=== PATIENT | female | born 1940 | race Caucasian/White ===

== ENCOUNTER → 2017-04-28 | Outpatient (REF) | payer MEDICARE ==
[2017-04-28 16:47] LABS: APPEARANCE, URINE CLEAR (CLEAR); BACTERIA, URINE AUTO NEGATIVE (NEGATIVE); BILIRUBIN, URINE AUTO NEGATIVE (NEGATIVE); BLOOD, URINE BLOOD NEGATIVE (NEGATIVE); COLOR, URINE COLORLESS (YELLOW); GLUCOSE, URINE (UA) AUTO 1+ mg/dL (NEGATIVE); KETONE, URINE AUTO NEGATIVE (NEGATIVE); LEUKOCYTE ESTERASE, URINE AUTO NEGATIVE (NEGATIVE); NITRITE, URINE AUTO NEGATIVE (NEGATIVE); PROTEIN, URINE AUTO NEGATIVE (NEGATIVE); RBC, URINE AUTO 0 /HPF (0-3); SPECIFIC GRAVITY URINE AUTO 1.004 (1.002-1.035); SQUAMOUS EPITHELIAL CELL UR AU 0 /HPF (0-6); UROBILINOGEN, URINE AUTO 0.2 mg/dL (0.0-2.0); WBC, URINE AUTO 0 /HPF (0-3)
== END ==
LOC: M LAB REF 15:44
DX: N81.6 Rectocele (principal); N32.81 Overactive bladder
CPT/HCPCS: 81001

== ENCOUNTER → 2018-02-07 | Outpatient (REF) | payer MEDICARE ==
[2018-02-07 13:25] LABS: CHOLESTEROL LEVEL 163 MG/DL (<200); FREE T4 1.17 NG/DL (0.76-1.46); HDL CHOLESTEROL 43 MG/DL (>40); LDL CHOLESTEROL 83 MG/DL (<100); NON-HDL-C 120 MG/DL; THYROID STIMULATING HORMONE 0.077 uIU/ML (0.358-3.740); TRIGLYCERIDES LEVEL 187 MG/DL (<150); URIC ACID 3.1 MG/DL (2.6-6.0)
== END ==
LOC: M SFHCPLAZ 12:57
DX: E05.90 Thyrotoxicosis, unspecified without thyrotoxic crisis or storm (principal); E78.5 Hyperlipidemia, unspecified; M10.9 Gout, unspecified
CPT/HCPCS: 84443

== ENCOUNTER → 2018-02-07 | Outpatient (REF) | payer MEDICARE ==
[2018-02-07 13:37] LABS: TOTAL PROTEIN,RANDOM URINE < 5.0 MG/DL (0.0-12.0)
== END ==
LOC: M LAB REF 12:55
DX: N18.3 Chronic kidney disease, stage 3 (moderate) (principal)

== ENCOUNTER → 2018-02-15 | Outpatient (CLI) | payer MEDICARE ==
[~2018-02-15] MED LIST: HEPARIN 1,000 UNITS/ML 10ML VIAL (FOR RADIOLOGY& DIALYSIS ONLY) As Ordered; ISOVUE-300 61% 50ML VIAL (Q9967) As Ordered; LIDOCAINE 2% MDV 20 ML VIAL As Ordered; MIDAZOLAM INJ 2 MG/2 ML VIAL (J2250) As Ordered; fentaNYL 100 MCG/2 ML INJECTION (J3010) As Ordered
== END | disposition home or self-care (01) ==
LOC: M IRPRO 06:37
DX: I73.9 Peripheral vascular disease, unspecified (principal)
CPT/HCPCS: 36246

== ENCOUNTER → 2018-02-16 | Outpatient (CLI) | payer MEDICARE | LOC: M RAD 07:17 | DX: N18.3 Chronic kidney disease, stage 3 (moderate) (principal); I12.9 Hypertensive chronic kidney disease with stage 1 through stage 4 chronic kidney disease, or unspecified chronic kidney disease; N13.30 Unspecified hydronephrosis; N28.1 Cyst of kidney, acquired | CPT/HCPCS: 76775 ==

== ENCOUNTER → 2018-05-19 | Outpatient (REF) | payer MEDICARE ==
[~2018-05-19] MED LIST changes: +ALLO100T PO; +ALLO300T2 PO; +AMLO2.5T PO; +AMLO2.5T3 PO; +APAP325T4 PO; +ASPI1TAB PO; +ASPI81TA7 PO; +ATEN50TA2 PO; +AVAP300T PO; +FISH100035 PO; +FISH7.5C PO; -HEPARIN 1,000 UNITS/ML 10ML VIAL (FOR RADIOLOGY& DIALYSIS ONLY) As Ordered; +HYDR-3911 PO; +IMIT50TA PO; +IRBE300T10 PO; -ISOVUE-300 61% 50ML VIAL (Q9967) As Ordered; -LIDOCAINE 2% MDV 20 ML VIAL As Ordered; +MELA5CAP3 PO; +MELA5TAB20 PO; +METF-839 PO; +METF500T PO; -MIDAZOLAM INJ 2 MG/2 ML VIAL (J2250) As Ordered; +NATU400T PO; +NIAC500T42 PO; +OMEP40CA2 PO; +PRAV80TA2 PO; +PROP50TA3 PO; +PROPYLTHIOURACIL PO; +SUPE600T4 PO; +SUPETAB PO; +TYLE325T5 PO; +VITAE20CA PO; -fentaNYL 100 MCG/2 ML INJECTION (J3010) As Ordered
[2018-05-19 12:34] LABS: HEMOGLOBIN A1c 5.8 %
[2018-05-19 12:58] LABS: FREE T4 1.4 NG/DL (0.76-1.46); THYROID STIMULATING HORMONE 0.032 uIU/ML (0.358-3.740)
== END ==
LOC: M SFHCPLAZ 10:35
PROVIDERS: ATTEND Family Medicine
DX: E05.90 Thyrotoxicosis, unspecified without thyrotoxic crisis or storm (principal); E11.22 Type 2 diabetes mellitus with diabetic chronic kidney disease

== ENCOUNTER 2018-06-28 11:30 | Inpatient (IN) | payer MEDICARE ==
[~2018-06-28] VITALS: Ht 172.7 cm; Wt 86.2 kg
[2018-06-28] MEDS: IRBESARTAN 150 MG TAB PO SCH (09:00)
[2018-06-28] MEDS: LACTOBACILLUS ACIDOPHILUS CAP (BACID) PO SCH (09:00)
[~2018-06-28 11:30] MED LIST changes: +ATOR40TA75 PO; +LORA-243 PO; +LR 1,000 ML IV ONE; +MAG-400T7 PO; +METF-723 PO; +PROBCAP4 PO; +ZYLO300T6 PO
[2018-06-28] MEDS ORDERED: MIDAZOLAM INJ 2 MG/2 ML VIAL (J2250) As Ordered ONE (15:38)
[2018-06-28] MEDS ORDERED: fentaNYL 100 MCG/2 ML INJECTION (J3010) As Ordered ONE ×2 (15:39→17:42)
[2018-06-28] MEDS ORDERED: PROPOFOL 500 MG/50 ML VIAL As Ordered ONE (15:42)
[2018-06-28] MEDS ORDERED: LIDOCAINE 2% INJ 100 MG/5 ML SDV (FOR ANES.) As Ordered ONE (15:44)
[2018-06-28] MEDS ORDERED: THROMBIN SOLN 20,000 UNITS KIT As Ordered ONE (15:46)
[2018-06-28] MEDS ORDERED: CONRAY-60 60% 50ML VIAL (Q9961) As Ordered ONE (15:46)
[2018-06-28] MEDS ORDERED: LIDOCAINE 1% SDV INJ 30 ML VIAL As Ordered ONE (15:46)
[2018-06-28] MEDS ORDERED: HEPARIN SOD (PORCINE) 5000 UNITS/ML VIAL As Ordered ONE ×2 (15:46→18:31)
[2018-06-28] MEDS ORDERED: BUPIVACAINE HCL 0.5% 30 ML VIAL As Ordered ONE (15:47)
--- NOTE | 2018-06-28 16:02 | HPEPDOC ---
General Date of Admission Jun 28, 2018 at 12:27 Attending Physician: Yoav Rivas MD Chief Complaint The patient is a 78-year-old female admitted with a reason for visit of Left Lower Extremity Claudication. Source: Patient, Family Exam Limitations: No limitations Timing/Duration: Constant, Getting worse Severity: Moderate History of Present Illness Patient is a 78-year-old female with left lower extremity claudication who underwent a left lower extremity angiogram which showed complete superficial femoral arterial occlusion at the takeoff from the common femoral artery with reconstitution of the popliteal artery distally. Home Medications Scheduled (Super Calcium 600 + D3 600-400 mg-Unit) 1 Tab Tab, 1 TAB PO DAILY, (Reported) Aspirin (Aspirin 81) 81 Mg Tab, 81 MG PO DAILY, (Reported) Atenolol (Atenolol) 50 Mg Tab, 50 MG PO BID, (Reported) Atorvastatin Calcium (Atorvastatin Calcium) 40 Mg Tab, 40 MG PO DAILY, (Reported) Hydralazine HCl (Hydralazine HCl) 50 Mg Tab, 50 MG PO BID, (Reported) Irbesartan (Irbesartan) 300 Mg Tab, 300 MG PO DAILY, (Reported) Lactobacillus Acidophilus (Probiotic) 1 Cap Cap, 1 CAP PO DAILY, (Reported) Loratadine (Loratadine) 10 Mg Tab, 10 MG PO DAILY, (Reported) Magnesium Oxide (Magnesium-Oxide) 241.3 Mg Tab, 400 MG PO DAILY for constipation, (Reported) Metformin Hydrochloride (Metformin Hydrochloride ER) 500 Mg Tab, 500 MG PO BID, (Reported) Limon 3 Polyunsat Fatty Acids (Fish Oil 1000 mg) 1 Cap Cap, 1 CAP PO DAILY, (Reported) Omeprazole (Omeprazole) 40 Mg Cap, 40 MG PO DAILY, (Reported) Propylthiouracil (Propylthiouracil) 50 Mg Tab, 50 MG PO BID, (Reported) Scheduled PRN (Melatonin) 5 Mg Chw, 5 MG PO for INSOMNIA, (Reported) Acetaminophen (Apap) 325 Mg Tab, 650 MG PO PRN PRN for PAIN OR FEVER, (Reported) Sumatriptan Succinate (Imitrex) 50 Mg Tab, 50 MG PO for MIGRAINE, (Reported) Miscellaneous Medications Allopurinol (Zyloprim) 300 Mg Tab, 150 MG PO, (Reported) Allergies Coded Allergies: Penicillins (Verified Allergy, Unknown, TRIMOX - ITCHING AND SWELLING, 06/28/18) Penicillins Cross Reactors (Verified Allergy, Unknown, TRIMOX - ITCHING AND SWELLING, 06/28/18) Furosemide (Verified Adverse Reaction, Unknown, DRAINS ALL POTASSIUM, 06/28/18) Past Medical History Medical History Hypothyroidism Peripheral arterial disease Diabetes mellitus Hypertension Hyperlipidemia Hypercholesterolemia Status post pacer placement Gout Surgical History Knee Surgery - Left Knee Replacement-2001 Thyroid Surgery - 2003 Hysterectomy - 1982 Pacemaker Implant - 2012 Tubal Ligation - 1972 Varicose Vein Stripping - Right Leg- Angiogram - LEFT LEG 02/15/18 Review of Systems Constitutional: Denies: Chills, Fever, Malaise, Night Sweats, Weakness, Fatigue, Weight Loss, Lethargy Eyes: Denies: Pain, Vision change, Conjunctivae inflammation, Eyelid inflammation, Redness ENT: Denies: Head Aches, Ear Pain, Dysphagia, Sinus Congestion, Post Nasal Drip, Sore Throat, Epistaxis Skin: Denies: Rash, Lesions, Jaundice, Bruising, Itching, Dry, Breakdown, Nail Changes Pulmonary: Denies: Dyspnea, Cough, Pleuritic Chest Pain Cardiovascular: Denies: Chest Pain, Palpitations, Orthopnea, Paroxysmal Noc. Dyspnea, Edema, Lt Headedness Gastrointestinal: Denies: Nausea, Vomiting, Abdominal Pain, Diarrhea, Constipation, Melena, Hematochezia Genitourinary: Denies: Dysuria, Frequency, Incontinence, Hematuria, Retention Hematologic: Denies: Bruising, Bleeding Excessively, Petecchia, Purpura, Enlarged Lymph Nodes Endocrine: Denies: Polydipsia, Polyphagia, Polyuria, Heat Intolerance, Cold Intolerance Musculoskeletal: Denies: Neck Pain, Back Pain, Shoulder Pain, Arm Pain, Hand Pain, Leg Pain, Foot Pain, Joint Pain, Muscle Pain, Spasms Neurological: Denies: Weakness, Numbness, Incoordination, Change in speech, Confusion, Seizures Psych: Reports: Mood Normal; Denies: Anxiety, Depression, Memory Issues, Thoughts of Self Harm, Anger, Thoughts of Harming Other Physical Examination General Exam: Positive: Alert, Cooperative, No Acute Distress Eye Exam: Positive: PERRLA, Conjunctiva & lids normal, EOMI ENT Exam: Positive: Atraumatic, Mucous membr. moist/pink, Pharynx Normal, Tongue Midline, Nares Patent, Ext Auditory Canal Nml, Pinna Normal Neck Exam: Positive: Supple, +2 carotid pulse wo bruit; Negative: JVD, thyromegaly, Lymphadenopathy Chest Exam: Positive: Clear to auscultation, Normal air movement; Negative: Rales, Rhonchi, Wheezing, Diminished Heart Exam: Positive: Rate Normal, Regular Rhythm; Negative: Irregular Rhythm, Gallops, Murmurs, Rubs Telemetry: Positive: No significant arrhythmia, Sinus Abdomen Exam: Positive: Normal bowel sounds, Soft; Negative: BS Hyperactive, BS Hypoactive, Tenderness, Hepatospenomegaly, Mass, Hernia Extremity Exam: Negative: Clubbing, Cyanosis, Edema, Normal pulses, Tenderness, Swelling Skin Exam: Positive: Nl turgor and temperature; Negative: Rash, Breakdown, Lesion, Pruritus Neuro Exam: Positive: Normal Gait, Normal Speech, Strength at 5/5 X4 ext, Normal Tone, Sensation Intact, Cranial Nerves 3-12 NL, Reflexes 2+ Psych Exam: Positive: Mental status NL, Mood NL, Memory Intact, Oriented x 3 Vital Signs Vital Signs Date Time Temp Pulse Resp B/P (MAP) Pulse Ox O2 Delivery O2 Flow Rate FiO2 06/28/18 13:11 198/84 (122) 06/28/18 13:01 97.6 88 18 96 Laboratory Data Labs 24H Laboratory Tests 2 06/28/18 14:06: Bedside Glucose (Misc Panel) 114H Assessment/Plan Assessment Patient is a 78-year-old female with superficial femoral artery occlusion the left lower extremity with debilitating life limiting claudication. Plan Patient will undergo a left femoral to popliteal artery bypass graft with PTFE graft. Yoav Rivas MD Jun 28, 2018 16:02
[2018-06-28] MEDS ORDERED: PROPOFOL 200 MG/20 ML VIAL As Ordered ONE ×3 (17:31→18:41)
[2018-06-28] MEDS ORDERED: PROTAMINE SULF INJ 50 MG/5 ML VIAL (J2720) As Ordered ONE (19:10)
--- NOTE | 2018-06-28 19:37 | ROOPDOC ---
Yoav Rivas MD Jun 28, 2018 19:37
[2018-06-28] MEDS ORDERED: SUMAtriptan SUCCINATE 25 MG TAB PO PRN (19:45)
[2018-06-28] MEDS ORDERED: MOM 30ML SUSPENSION UDC PO PRN (19:45)
[2018-06-28] MEDS ORDERED: BISACODYL 10 MG SUPP PR PRN (19:45)
[2018-06-28] MEDS ORDERED: NORCO, ANEXSIA 5/325MG TABLET (HYDROcodone/ACETAMINOPHEN) PO PRN ×2 (19:45→20:00)
[2018-06-28] MEDS ORDERED: ONDANSETRON 4MG/2ML VIAL (J2405) IV PRN ×2 (19:45→20:00)
[2018-06-28] MEDS ORDERED: MORPHINE 4 MG/ML 1ML VIAL/SYRINGE (J2270) IV PRN (19:45)
[2018-06-28] MEDS ORDERED: LR 1,000 ML IV SCH (20:00)
[2018-06-28] MEDS ORDERED: fentaNYL 100 MCG/2 ML INJECTION (J3010) IV PRN (20:00)
[2018-06-28 20:30] VITALS: BP 158/67
[2018-06-28] MEDS: MAGNESIUM OXIDE 400 MG TAB (MAG-OX) PO SCH (20:57)
[2018-06-28] MEDS: SENOKOT S TAB PO SCH (20:57)
[2018-06-28] MEDS: LORATADINE 10 MG TAB PO SCH (20:57)
[2018-06-28] MEDS: DOCUSATE SODIUM 100 MG CAP PO SCH (20:57)
[2018-06-28] MEDS: OMEPRAZOLE 20 MG CAP PO SCH (20:58)
[2018-06-28] MEDS: ATORVASTATIN 20 MG TAB PO SCH (20:58)
[2018-06-28] MEDS: OMEGA-3 1000MG CAPSULE PO SCH (20:58)
[2018-06-28] MEDS: ASPIRIN 81 MG ENTERIC TAB PO SCH (20:58)
[2018-06-28 21:00] VITALS: BP 151/67
[2018-06-28] MEDS: ATENOLOL 50 MG TAB PO SCH (21:00)
[2018-06-28] MEDS: **hydrALAZINE** 50 MG TAB PO SCH (21:00)
[2018-06-28 21:30] VITALS: BP 132/63
[2018-06-28 22:30] VITALS: BP 124/55
[2018-06-28] MEDS: ACETAMINOPHEN 325 MG TAB PO PRN (22:44)
[2018-06-28 23:30] VITALS: BP 131/68
[2018-06-29] VITALS (8 sets, daily range): BP systolic 114–139; BP diastolic 56–65
[2018-06-29] MEDS: PROPYLTHIOURACIL 50 MG TAB PO SCH ×3 (00:28→21:04)
[2018-06-29] MEDS: metFORMIN XR 500MG TAB *GLUCOPHAGE XR PO SCH ×3 (00:29→21:04)
[2018-06-29] MEDS: ACETAMINOPHEN 325 MG TAB PO PRN (03:26)
[2018-06-29 06:12] LABS: HEMATOCRIT 27.9 % (36.0-47.0); HEMOGLOBIN 8.9 g/dl (12.0-15.5); MEAN CORPUSCULAR HEMOGLOBIN 30.5 pg (27.0-33.0); MEAN CORPUSCULAR HGB CONC 31.9 g/dl (32.0-36.5); MEAN CORPUSCULAR VOLUME 95.5 fl (80.0-96.0); PLATELET COUNT, AUTOMATED 199 10^3/uL (150-450); RED BLOOD COUNT 2.92 10^6/uL (4.00-5.40); WHITE BLOOD COUNT 10.5 10^3/uL (4.0-10.0)
[2018-06-29 06:36] LABS: CALCIUM LEVEL 8.3 MG/DL (8.8-10.2); CREATININE FOR GFR 1.3 MG/DL (0.55-1.30); GLOMERULAR FILTRATION RATE 42.4 (>39); POTASSIUM SERUM 4.6 MEQ/L (3.5-5.1)
[2018-06-29] MEDS: OMEGA-3 1000MG CAPSULE PO SCH (08:41)
[2018-06-29] MEDS: ASPIRIN 81 MG ENTERIC TAB PO SCH (08:41)
[2018-06-29] MEDS: SENOKOT S TAB PO SCH ×2 (08:41→21:03)
[2018-06-29] MEDS: MAGNESIUM OXIDE 400 MG TAB (MAG-OX) PO SCH (08:41)
[2018-06-29] MEDS: LACTOBACILLUS ACIDOPHILUS CAP (BACID) PO SCH (08:41)
[2018-06-29] MEDS: LORATADINE 10 MG TAB PO SCH (08:41)
[2018-06-29] MEDS: ATORVASTATIN 20 MG TAB PO SCH (08:41)
[2018-06-29] MEDS: **hydrALAZINE** 50 MG TAB PO SCH ×3 (08:43→21:05)
[2018-06-29] MEDS: DOCUSATE SODIUM 100 MG CAP PO SCH ×2 (08:43→21:05)
[2018-06-29] MEDS: IRBESARTAN 150 MG TAB PO SCH ×2 (08:44→09:00)
[2018-06-29] MEDS: ATENOLOL 50 MG TAB PO SCH ×3 (08:44→21:04)
[2018-06-29] MEDS: ALLOPURINOL 300 MG TAB PO SCH (08:44)
[2018-06-29] MEDS: OMEPRAZOLE 20 MG CAP PO SCH (08:45)
[2018-06-29] MEDS ORDERED: GLUCOSE 4 GM CHEW TABLET PO PRN (13:30)
[2018-06-29] MEDS ORDERED: DEXTROSE 50% 50 ML SYRINGE IV PRN (13:30)
[2018-06-29] MEDS ORDERED: GLUCAGON FOR INJ 1 MG VIAL (J1610) SC PRN (13:30)
--- NOTE | 2018-06-29 15:51 | CR ---
DATE OF CONSULTATION: 06/29/2018 PRIMARY CARE PROVIDER: Dr. Dipti Goldberg REFERRING PHYSICIAN: Dr. Yoav Rivas REASON FOR CONSULTATION: Medical management of chronic illness such as diabetes, hypertension, hypercholesterolemia. CHIEF COMPLAINT: Bilateral leg pain. HISTORY OF PRESENT ILLNESS: This is a 78-year-old female, past medical history significant for hypertension, dyslipidemia, migraine headaches, hyperthyroidism, reflux, gout, diabetes, denies any prior history of smoking had been having on and off bilateral lower extremity pain which is worsened with shopping and walking around. She states that she has had these symptoms for about a year, but they have been unbearable for the last few months. She presented to her primary care physician who referred her to vascular surgery. She was found to have peripheral vascular disease and underwent a left femoral-popliteal bypass grafting on 06/28/2018. The patient states that she still continues to have slight pain and that her blood pressure usually runs slow at home for which she usually holds her blood pressure medications. Glucose level has been running normal at home according to the patient. PAST MEDICAL HISTORY: Macrocytic anemia. Bladder prolapse, status post pessary. Hypertension. Diabetes. Hyperlipidemia. Third degree heart block 02/2013 with pacemaker. Conductive hearing loss. Wears hearing aids. Magnesium deficiency. Irritable bowel syndrome. Gastroesophageal reflux disease. Duodenal ulcer. Multinodular goiter, status post partial thyroidectomy. Osteoarthritis of the cervical spine. Osteopenia. Atrial tachycardia. Gout. BPPV. Hyperthyroidism. History of migraines since age 19. ALLERGIES: Itching and facial swelling with TRIMOX. LASIX, low potassium levels. PAST SURGICAL HISTORY: Hysterectomy. Left knee replacement. Partial thyroidectomy. Pacemaker. Colonoscopy with tubular adenoma. Esophagogastroduodenoscopy (EGD), duodenal ulcer and chronic gastritis per Dr. Blake. Angiogram, Dr. Rivas 02/2018. FAMILY HISTORY: Father lymphoma, at age 49. Mother hypertension. Siblings, brother of hemochromatosis, history of type 2 diabetes, knee osteoarthritis. Brother has hypertension. Daughter with fibromyalgia, son with hypertension. Denies family history of breast or colon cancer. SOCIAL HISTORY: Never smoked cigarettes. No alcohol use or recreational drug use. Using caffeine, coffee and tea occasionally. Patient finished high school, retired [employer] employee. Divorces. Has four childbirths. REVIEW OF SYSTEMS: Denies chest pain, palpitations. Pain in the lower extremities improved since the gastric bypass. Patient has occasional changes in vision. All other systems otherwise negative. PHYSICAL EXAMINATION: Temperature 97.5, pulse 64, respiratory rate 19, blood pressure 139/65, 97% on 2 liters nasal cannula. GENERAL: Patient is awake, alert and oriented times three. Answers questions appropriately. No cyanosis, jugular venous distention (JVD), cervical lymphadenopathy. Respiratory: Patient does not use accessory muscles. Sitting eating her lunch. Able to provide a history. HEENT: Pupils round reactive to light and accommodation. Extraocular muscles are intact. LUNGS: Clear to auscultation. No wheezing, rales or rhonchi. HEART: S1, S2. Sinus rhythm. ABDOMEN: Soft, nontender, nondistended. Positive bowel sounds. EXTREMITIES: No cyanosis, clubbing or any pitting edema. LABORATORY DATA: White count 10, hemoglobin 8.9, hematocrit 27, platelet count 199. Sodium 137, potassium 4.6, chloride 105, bicarbonate 27, BUN 1.3, glucose 152. Urine culture 02/16/2018, no growth of clinical significance. IMAGING STUDIES: Renal ultrasound 02/16/2018, mild left hydronephrosis right kidney with small cyst. No compelling duplex sonographic evidence of significant renal artery stenosis. 02/15/2018, IR fluoro guidance aortogram right common femoral artery. ASSESSMENT AND PLAN: This is a 78-year-old female with history of third degree heart block, status post insertion of dual chamber pacemaker February 2013, hypertension, diabetes, no prior history of smoking, macrocytic anemia, bladder prolapse, hyperlipidemia, conductive hearing loss, magnesium deficiency, irritable bowel syndrome (IBS), GERD, duodenal ulcer, multinodular goiter, status post thyroidectomy, osteoarthritis cervical spine, atrial tachycardia, BPPV, hyperthyroidism, history of migraines since the age of 19, complaint of intermittent claudication found to have peripheral arterial disease, underwent left lower extremity angiogram with complete superficial femoral artery occlusion from the common femoral artery with reconstitution of the popliteal artery distally. Patient underwent left femoral to popliteal artery bypass with PTFE grafting. Hospitalist services consulted for management of chronic medical illness. CURRENT ISSUES: 1. Status post left femoral to popliteal artery bypass graft with PTFE grafting for intermittent claudication and occlusion of the ankle, complete occlusion of the superficial femoral arterial artery at the left common femoral artery into the popliteal artery. Postoperative management per Dr. Rivas, vascular surgery. Currently on aspirin 81 mg daily. 2. Hypertension. Blood pressure has been 124 to 139 on atenolol 50 twice a day, hydralazine 50 twice a day. Previous renal ultrasound was not convincing for renal artery stenosis. She is to continue on irbesartan 300 daily. 3. Hyperlipidemia. Continue on Lipitor, fish oil. 4. Allergic rhinitis. On Claritin. 5. Magnesium deficiency. On supplemental magnesium. 6. Diabetes. On consistent carbohydrate diet. Will check A1c. 7. Deep venous thrombosis (DVT) prophylaxis. Currently just on aspirin. Defer to primary service vascular surgery. 8. Hyperthyroidism. Continue on PTU.
[2018-06-30 06:00] VITALS: BP 141/62
[2018-06-30 06:22] LABS: BASO % 0.2 % (0.0-1.0); EOS % 0.3 % (0.0-3.0); HEMATOCRIT 24.7 % (36.0-47.0); HEMOGLOBIN 8.1 g/dl (12.0-15.5); LYMPH # 1.6 10^3/uL (1.5-4.5); LYMPH % 16.5 % (24.0-44.0); MEAN CORPUSCULAR HEMOGLOBIN 30.3 pg (27.0-33.0); MEAN CORPUSCULAR HGB CONC 32.8 g/dl (32.0-36.5); MEAN CORPUSCULAR VOLUME 92.5 fl (80.0-96.0); MONO # 1.4 10^3/uL (0.0-0.8); MONO % 14.2 % (0.0-5.0); NEUTROPHILS # 6.6 10^3/uL (1.8-7.7); NEUTROPHILS % 68.4 % (36.0-66.0); PLATELET COUNT, AUTOMATED 185 10^3/uL (150-450); RED BLOOD COUNT 2.67 10^6/uL (4.00-5.40); WHITE BLOOD COUNT 9.6 10^3/uL (4.0-10.0)
[2018-06-30 06:42] LABS: HEMOGLOBIN A1c 5.5 %
[2018-06-30] MEDS: ACETAMINOPHEN 325 MG TAB PO PRN (06:44)
[2018-06-30 06:49] LABS: CALCIUM LEVEL 8.4 MG/DL (8.8-10.2); CREATININE FOR GFR 1.22 MG/DL (0.55-1.30); GLOMERULAR FILTRATION RATE 45.6 (>39); POTASSIUM SERUM 3.9 MEQ/L (3.5-5.1)
[2018-06-30] MEDS: IRBESARTAN 150 MG TAB PO SCH (08:23)
[2018-06-30] MEDS: OMEGA-3 1000MG CAPSULE PO SCH (08:23)
[2018-06-30] MEDS: ATENOLOL 50 MG TAB PO SCH ×2 (08:23→21:00)
[2018-06-30] MEDS: LACTOBACILLUS ACIDOPHILUS CAP (BACID) PO SCH (08:24)
[2018-06-30] MEDS: LORATADINE 10 MG TAB PO SCH (08:24)
[2018-06-30] MEDS: DOCUSATE SODIUM 100 MG CAP PO SCH ×2 (08:24→20:59)
[2018-06-30] MEDS: metFORMIN XR 500MG TAB *GLUCOPHAGE XR PO SCH ×2 (08:24→20:59)
[2018-06-30] MEDS: OMEPRAZOLE 20 MG CAP PO SCH (08:24)
[2018-06-30] MEDS: ATORVASTATIN 20 MG TAB PO SCH (08:24)
[2018-06-30] MEDS: PROPYLTHIOURACIL 50 MG TAB PO SCH ×2 (08:24→20:59)
[2018-06-30] MEDS: ALLOPURINOL 300 MG TAB PO SCH (08:24)
[2018-06-30] MEDS: MAGNESIUM OXIDE 400 MG TAB (MAG-OX) PO SCH (08:25)
[2018-06-30] MEDS: **hydrALAZINE** 50 MG TAB PO SCH ×2 (08:25→21:00)
[2018-06-30] MEDS: ASPIRIN 81 MG ENTERIC TAB PO SCH (08:25)
[2018-06-30] MEDS: SENOKOT S TAB PO SCH ×2 (08:25→21:00)
[2018-06-30 10:25] VITALS: BP 101/47
[2018-06-30 11:43] VITALS: BP 108/49
--- NOTE | 2018-06-30 11:45 | IPNPDOC ---
Text Note Date of Service The patient was seen on 06/30/18. NOTE SUBJECTIVE Patient is a 78-year-old female with a past medical history significant for hypertension, dyslipidemia, migraine, hypothyroid, diabetes, reflux and gout. Patient presented to her primary care physician with a complaint of progressively worsening bilateral claudication symptoms. Patient was subsequently referred to vascular surgery. Following the appropriate workup the patient was found to have PVD and underwent a left sided femoral popliteal bypass graft on 06/28/18. Hospitalist team consulted to help manage the patient's blood pressure. Patient reports that when her pressures run low at home she usually holds her medications. Patient was interviewed and examined today at bedside. She denies any acute complaints. She rates her incisional pain at 4 out of 10 at its worst. It is currently a 2 out of 10 and well controlled with the medication being provided. She has been up and weightbearing per physical therapy. She does report having a bout of dizziness yesterday post surgery. A similar episode occurred this morning after receiving her blood pressure medications. Pressures were noted to drop to 101/47. Orthostatics will be measured this afternoon. Patient was also complaining of a migraine-like headache. A single dose of Imitrex was ordered and the patient we monitored for relief. She denies any changes in her vision, difficulty breathing or shortness of breath. She reports continuing to use incentive spirometry. She denies chest pain/pressure. No abdominal pain, no difficulty urinating or with stooling. OBJECTIVE: VITALS Please see below. EXAM: Gen.: Patient is awake, alert and oriented, in no acute distress Head: Normocephalic atraumatic EENT: EOMI, sclera nonicteric, mucous membranes moist Neck: No JVD, lymphadenopathy or thyromegaly Heart: Regular rate and rhythm, normal S1 and S2 without any murmurs appreciated Lungs: Clear to auscultation bilaterally, no wheezing rales or rhonchi Abdomen: Soft nontender, no masses Extremities: PT pulses per Doppler, no lower extremity swelling, no calf tenderness Psych: Mood and affect are appropriate ASSESSMENT/PLAN: 1. Hypertension Patient is currently being treated with atenolol 50 mg twice a day, hydralazine 50 mg twice a day, irbesartan 300 mg daily. - Blood pressure this morning was 141/62 (88). - Patient has previously had a workup for renal artery stenosis which did not indicate any further intervention. - Orthostatics this afternoon. 2. Peripheral vascular disease S/P left femoral to popliteal artery bypass graft for complete occlusion of superficial femoral artery. -Continue on aspirin 81 mg daily -Postoperative management, including pain control, per Dr. Rivas. 3. Hyperlipidemia -C/W statin therapy and fish oil 4. Diabetes - Consistent carbohydrate diet - Continue home metformin 500 mg twice a day 5. History of migraines - Tylenol 650 every 4 hours as needed - Single dose of Imitrex 50 mg given once, patient takes this medication on an outpatient basis 6. Hyperthyroid c/w home PTU 7. Magnesium deficiency c/w supplemental magnesium 8. Allergic rhinitis c/w Claritin DVT prophylaxis: Patient is currently on aspirin therapy. Prophylaxis per ms scular surgery. VS,Fishbone, I+O VS, Fishbone, I+O Laboratory Tests 06/30/18 05:44 Red Blood Count 2.67 L, Mean Corpuscular Volume 92.5, Mean Corpuscular Hemoglobin 30.3, Mean Corpuscular Hemoglobin Concent 32.8, Red Cell Distribution Width 14.1, Neutrophils (%) (Auto) 68.4 H, Lymphocytes (%) (Auto) 16.5 L, Monocytes (%) (Auto) 14.2 H, Eosinophils (%) (Auto) 0.3, Basophils (%) (Auto) 0.2, Neutrophils # (Auto) 6.6, Lymphocytes # (Auto) 1.6, Monocytes # (Auto) 1.4 H, Eosinophils # (Auto) 0.0, Basophils # (Auto) 0.0 Vital Signs Date Time Temp Pulse Resp B/P (MAP) Pulse Ox O2 Delivery O2 Flow Rate FiO2 06/30/18 10:25 67 101/47 (65) 95 06/30/18 08:23 79 06/30/18 06:00 98.0 06/29/18 00:30 2.0 I&O- Last 24 Hours up to 6 AM 06/30/18 06:00 Intake Total 1610 ml Output Total 1830 ml Balance -220 ml GME ATTESTATION GME ATTESTATION My faculty preceptor for this patient encounter was physically present during the encounter and was fully available. All aspects of the patient interview, examination, medical decision making process, and medical care plan development were reviewed and approved by the faculty preceptor. The faculty preceptor is aware and concurs with the plan as stated in the body of this note and will attest to such by his/her cosignature. CARLIE VILA DO Jun 30, 2018 11:45
[2018-06-30] MEDS ORDERED: SUMAtriptan SUCCINATE 25 MG TAB PO ONE (12:00)
[2018-06-30 14:00] VITALS: BP 131/59
[2018-06-30 22:00] VITALS: BP 123/58
[2018-07-01] MEDS: ACETAMINOPHEN 325 MG TAB PO PRN ×2 (05:48→21:02)
[2018-07-01 06:00] VITALS: BP 139/65
[2018-07-01 08:08] VITALS: BP 126/58
[2018-07-01] MEDS: **hydrALAZINE** 50 MG TAB PO SCH ×2 (08:08→20:56)
[2018-07-01] MEDS: IRBESARTAN 150 MG TAB PO SCH (08:08)
[2018-07-01] MEDS: ATENOLOL 50 MG TAB PO SCH ×2 (08:09→20:55)
[2018-07-01] MEDS: DOCUSATE SODIUM 100 MG CAP PO SCH ×2 (08:30→21:02)
[2018-07-01] MEDS: OMEPRAZOLE 20 MG CAP PO SCH (08:30)
[2018-07-01] MEDS: ALLOPURINOL 300 MG TAB PO SCH (08:30)
[2018-07-01] MEDS: ASPIRIN 81 MG ENTERIC TAB PO SCH (08:30)
[2018-07-01] MEDS: MAGNESIUM OXIDE 400 MG TAB (MAG-OX) PO SCH (08:30)
[2018-07-01] MEDS: ATORVASTATIN 20 MG TAB PO SCH (08:30)
[2018-07-01] MEDS: PROPYLTHIOURACIL 50 MG TAB PO SCH ×2 (08:31→21:02)
[2018-07-01] MEDS: LACTOBACILLUS ACIDOPHILUS CAP (BACID) PO SCH (08:31)
[2018-07-01] MEDS: LORATADINE 10 MG TAB PO SCH (08:31)
[2018-07-01] MEDS: SENOKOT S TAB PO SCH ×2 (08:31→21:04)
[2018-07-01] MEDS: metFORMIN XR 500MG TAB *GLUCOPHAGE XR PO SCH ×2 (08:31→21:03)
[2018-07-01] MEDS: OMEGA-3 1000MG CAPSULE PO SCH (08:31)
--- NOTE | 2018-07-01 10:56 | IPNPDOC ---
Text Note Date of Service The patient was seen on 07/01/18. NOTE SUBJECTIVE Patient is a 78-year-old female with a past medical history significant for hypertension, dyslipidemia, migraine, hypothyroid, diabetes, reflux and gout. Patient presented to her primary care physician with a complaint of progressively worsening bilateral claudication symptoms. Patient was subsequently referred to vascular surgery. Following the appropriate workup the patient was found to have PVD and underwent a left sided femoral popliteal bypass graft on 06/28/18. Hospitalist team consulted to help manage the patient's blood pressure. Patient reports that when her pressures run low at home she usually holds her medications. Patient was interviewed and examined at bedside today. She denies having any acute complaints. Yesterday she did however, have a migraine which was successfully treated with a single dose of Imitrex at the patient's home dose. She denies any headache symptoms today. She did report that this morning she had a bit of pain in her incision site. This was, however, adequately controlled with Tylenol. Vitals have remained stable yesterday and overnight. Yesterday patient did have a brief episode of lightheadedness while transferring to the commode. Orthostatics performed this morning were negative. Patient is currently working with OT and PT. Has been able to bear weight with assistance. Reports continuing to use incentive spirometry. She denies chest pain/pressure. No abdominal pain, no difficulty urinating or with stooling. OBJECTIVE: VITALS Please see below. EXAM: Gen.: Patient is awake, alert and oriented, in no acute distress Head: Normocephalic atraumatic EENT: EOMI, sclera nonicteric, mucous membranes moist Neck: No JVD, lymphadenopathy or thyromegaly Heart: Regular rate and rhythm, normal S1 and S2 without any murmurs appreciated Lungs: Clear to auscultation bilaterally, no wheezing rales or rhonchi Abdomen: Soft nontender, no masses Extremities: PT pulses per Doppler, no lower extremity swelling, no calf tenderness Psych: Mood and affect are appropriate ASSESSMENT/PLAN: 1. Hypertension Patient is currently being treated with atenolol 50 mg twice a day, hydralazine 50 mg twice a day, irbesartan 300 mg daily. - Blood pressure this morning was 126/58. Orthostatics negative. 2. Peripheral vascular disease S/P left femoral to popliteal artery bypass graft for complete occlusion of superficial femoral artery. -Continue on aspirin 81 mg daily -Postoperative management, including pain control, per Dr. Rivas. 3. Hyperlipidemia -C/W statin therapy and fish oil 4. Diabetes - Consistent carbohydrate diet - Continue home metformin 500 mg twice a day - Hemoglobin A1c of 5.5 5. History of migraines - Tylenol 650 every 4 hours as needed - Imitrex PRN at patient's home dose 6. Hyperthyroid c/w home PTU 7. Magnesium deficiency c/w supplemental magnesium 8. Allergic rhinitis c/w Claritin DVT prophylaxis: Patient is currently on aspirin therapy. Prophylaxis per vascular surgery. VS,Fishbone, I+O VS, Fishbone, I+O Vital Signs Date Time Temp Pulse Resp B/P (MAP) Pulse Ox O2 Delivery O2 Flow Rate FiO2 07/01/18 08:09 78 126/58 07/01/18 06:00 98.2 17 96 06/29/18 00:30 2.0 I&O- Last 24 Hours up to 6 AM 07/01/18 06:00 Intake Total 1938 ml Output Total 1310 ml Balance 628 ml CARLIE VILA DO Jul 01, 2018 10:56
[2018-07-01 14:00] VITALS: BP 114/51
[2018-07-01 22:00] VITALS: BP 120/44
[2018-07-02 06:00] VITALS: BP 143/62
[2018-07-02] MEDS: SENOKOT S TAB PO SCH ×2 (09:00→20:00)
[2018-07-02] MEDS: IRBESARTAN 150 MG TAB PO SCH (09:48)
[2018-07-02] MEDS: DOCUSATE SODIUM 100 MG CAP PO SCH ×2 (09:49→20:00)
[2018-07-02] MEDS: LORATADINE 10 MG TAB PO SCH (09:49)
[2018-07-02] MEDS: OMEPRAZOLE 20 MG CAP PO SCH (09:49)
[2018-07-02] MEDS: ASPIRIN 81 MG ENTERIC TAB PO SCH (09:49)
[2018-07-02] MEDS: ATORVASTATIN 20 MG TAB PO SCH (09:49)
[2018-07-02] MEDS: LACTOBACILLUS ACIDOPHILUS CAP (BACID) PO SCH (09:49)
[2018-07-02] MEDS: OMEGA-3 1000MG CAPSULE PO SCH (09:49)
[2018-07-02] MEDS: PROPYLTHIOURACIL 50 MG TAB PO SCH ×2 (09:50→20:09)
[2018-07-02] MEDS: **hydrALAZINE** 50 MG TAB PO SCH ×2 (09:50→20:07)
[2018-07-02] MEDS: MAGNESIUM OXIDE 400 MG TAB (MAG-OX) PO SCH (09:50)
[2018-07-02] MEDS: metFORMIN XR 500MG TAB *GLUCOPHAGE XR PO SCH ×2 (09:50→20:10)
[2018-07-02] MEDS: ATENOLOL 50 MG TAB PO SCH ×2 (09:51→20:07)
[2018-07-02] MEDS: ALLOPURINOL 300 MG TAB PO SCH (09:51)
[2018-07-02 14:00] VITALS: BP 104/58
[2018-07-02 22:00] VITALS: BP 126/60
[2018-07-03 00:50] VITALS: BP 144/64
[2018-07-03 00:55] VITALS: BP 140/60
[2018-07-03 01:36] LABS: CPK CREATINE PHOSPHOKINASE 145 U/L (26-192); MB/CK RELATIVE INDEX 1.38 (< OR =4); TROPONIN I < 0.02 NG/ML (< 0.10)
[2018-07-03 01:50] VITALS: BP 128/58
[2018-07-03 06:00] VITALS: BP 127/58
[2018-07-03] MEDS: IRBESARTAN 150 MG TAB PO SCH (08:11)
[2018-07-03] MEDS: ATENOLOL 50 MG TAB PO SCH ×2 (08:12→20:08)
[2018-07-03] MEDS: **hydrALAZINE** 50 MG TAB PO SCH ×2 (08:12→20:07)
[2018-07-03] MEDS: PROPYLTHIOURACIL 50 MG TAB PO SCH ×2 (08:13→20:07)
[2018-07-03] MEDS: ASPIRIN 81 MG ENTERIC TAB PO SCH (08:13)
[2018-07-03] MEDS: DOCUSATE SODIUM 100 MG CAP PO SCH ×2 (08:13→20:07)
[2018-07-03] MEDS: OMEGA-3 1000MG CAPSULE PO SCH (08:13)
[2018-07-03] MEDS: ALLOPURINOL 300 MG TAB PO SCH (08:13)
[2018-07-03] MEDS: ATORVASTATIN 20 MG TAB PO SCH (08:14)
[2018-07-03] MEDS: LORATADINE 10 MG TAB PO SCH (08:14)
[2018-07-03] MEDS: MAGNESIUM OXIDE 400 MG TAB (MAG-OX) PO SCH (08:14)
[2018-07-03] MEDS: LACTOBACILLUS ACIDOPHILUS CAP (BACID) PO SCH (08:14)
[2018-07-03] MEDS: SENOKOT S TAB PO SCH ×2 (08:15→20:07)
[2018-07-03] MEDS: metFORMIN XR 500MG TAB *GLUCOPHAGE XR PO SCH (08:15)
[2018-07-03] MEDS: OMEPRAZOLE 20 MG CAP PO SCH (08:15)
[2018-07-03 09:12] LABS: BASO % 0.4 % (0.0-1.0); EOS # 0.2 10^3/uL (0.0-0.50); EOS % 3.3 % (0.0-3.0); HEMATOCRIT 23.1 % (36.0-47.0); HEMOGLOBIN 7.4 g/dl (12.0-15.5); LYMPH # 1.4 10^3/uL (1.5-4.5); LYMPH % 21.4 % (24.0-44.0); MEAN CORPUSCULAR VOLUME 96.7 fl (80.0-96.0); MONO # 0.8 10^3/uL (0.0-0.8); MONO % 12.5 % (0.0-5.0); NEUTROPHILS # 4.2 10^3/uL (1.8-7.7); NEUTROPHILS % 61.8 % (36.0-66.0); PLATELET COUNT, AUTOMATED 222 10^3/uL (150-450); RED BLOOD COUNT 2.39 10^6/uL (4.00-5.40); WHITE BLOOD COUNT 6.7 10^3/uL (4.0-10.0)
--- NOTE | 2018-07-03 09:29 | IPNPDOC ---
Date Seen The patient was seen on 07/03/18. Progress Note SUBJECTIVE: at 0100 am, pt c/o chest pain in the midsternal area without radiation, diaphoresis, vomiting, lasting for about 15 minutes relieved with Hgb 7.4. denies brbpr, black tarry stools, sob, cough, fever, lightheadedness, or dizziness. no active oozing from surgical site. PHYSICAL EXAMINATION: VITALS PLS SEE BELOW GENERAL: Patient is awake, alert and oriented times three. Answers questions appropriately. No cyanosis, jugular venous distention (JVD), cervical lymphadenopathy. Respiratory: Patient does not use accessory muscles. HEENT: pallor Pupils round reactive to light and accommodation. Extraocular muscles are intact. LUNGS: Clear to auscultation. No wheezing, rales or rhonchi. HEART: S1, S2. Sinus rhythm. ABDOMEN: Soft, nontender, nondistended. Positive bowel sounds. EXTREMITIES: No cyanosis, clubbing or any pitting edema. LABORATORY DATA: pls see below IMAGING STUDIES: Renal ultrasound 02/16/2018, mild left hydronephrosis right kidney with small cyst. No compelling duplex sonographic evidence of significant renal artery stenosis. 02/15/2018, IR fluoro guidance aortogram right common femoral artery. ASSESSMENT AND PLAN: 78-year-old female, past medical history significant for hypertension, dyslipidemia, migraine headaches, hyperthyroidism, reflux, gout, diabetes, denies any prior history of smoking had been having on and off bilateral lower extremit y pain which is worsened with shopping and walking around. She states that she has had these symptoms for about a year, but they have been unbearable for the last few months. She presented to her primary care physician who referred her to vascular surgery. She was found to have peripheral vascular disease and underwent a left femoral-popliteal bypass grafting on 06/28/2018. The patient states that she still continues to have slight pain and that her blood pressure usually runs slow at home for which she usually holds her blood pressure medications. Glucose level has been running normal at home according to the patient. Status post left femoral to popliteal artery bypass graft with PTFE grafting for intermittent claudication and occlusion of the ankle, complete occlusion of the superficial femoral arterial artery at the left common femoral artery into the popliteal artery. Postoperative management per Dr. Rivas, vascular surgery. Currently on aspirin 81 mg daily. Chest pain may be demand-mediated ischemi from severe anemia trop negative so far. check echo . transfuse rbc r/o PE with ct chest. acute blood loss anemia s/p PTFE grafting type and cross 2 units rbc H&H monitoring Hypertension. on atenolol 50 twice a day, hydralazine 50 twice a day. Previous renal ultrasound was not convincing for renal artery stenosis. She is to continue on irbesartan 300 daily. Hyperlipidemia. Continue on Lipitor, fish oil. Allergic rhinitis. On Claritin. magnesium deficiency. On supplemental magnesium. Diabetes. On consistent carbohydrate diet. Will check A1c. Deep venous thrombosis (DVT) prophylaxis.on ASA, and lvoenox sq started 07/03/18 Hyperthyroidism. Continue on PTU. VS, I&O, 24H, Fishbone Vital Signs/I&O Vital Signs Date Time Temp Pulse Resp B/P (MAP) Pulse Ox O2 Delivery O2 Flow Rate FiO2 07/03/18 08:12 114/41 07/03/18 08:12 78 07/03/18 06:00 97.2 18 96 07/03/18 01:50 2.0 I&O- Last 24 Hours up to 6 AM 07/03/18 06:00 Intake Total 1100 ml Output Total 300 ml Balance 800 ml Laboratory Data 24H LABS Laboratory Tests 2 07/02/18 10:04: Bedside Glucose (Misc Panel) 122H 07/02/18 20:09: Bedside Glucose (Misc Panel) 102 07/03/18 00:56: Bedside Glucose (Misc Panel) 115H 07/03/18 01:08: Total Creatine Kinase 145, Creatine Kinase MB 2.0, Creatine Kinase MB Relative Index 1.38, Troponin I < 0.02 07/03/18 08:48: Immature Granulocyte % (Auto) 0.6, White Blood Count 6.7, Red Blood Count 2.39L, Hemoglobin 7.4L, Hematocrit 23.1L, Mean Corpuscular Volume 96.7H, Mean Corpuscular Hemoglobin 31.0, Mean Corpuscular Hemoglobin Concent 32.0, Red Cell Distribution Width 14.6H, Platelet Count 222, Neutrophils (%) (Auto) 61.8, Lymphocytes (%) (Auto) 21.4L, Monocytes (%) (Auto) 12.5H, Eosinophils (%) (Auto) 3.3H, Basophils (%) (Auto) 0.4, Neutrophils # (Auto) 4.2, Lymphocytes # (Auto) 1.4L, Monocytes # (Auto) 0.8, Eosinophils # (Auto) 0.2, Basophils # (Auto) 0.0, Nucleated Red Blood Cells % (auto) 0.0 CBC/BMP Laboratory Tests 07/03/18 08:48 Red Blood Count 2.39 L, Mean Corpuscular Volume 96.7 H, Mean Corpuscular Hemoglobin 31.0, Mean Corpuscular Hemoglobin Concent 32.0, Red Cell Distribution Width 14.6 H, Neutrophils (%) (Auto) 61.8, Lymphocytes (%) (Auto) 21.4 L, Monocytes (%) (Auto) 12.5 H, Eosinophils (%) (Auto) 3.3 H, Basophils (%) (Auto) 0.4, Neutrophils # (Auto) 4.2, Lymphocytes # (Auto) 1.4 L, Monocytes # (Auto) 0.8, Eosinophils # (Auto) 0.2, Basophils # (Auto) 0.0 LEONIE GUZMAN MD Jul 03, 2018 09:29
[2018-07-03 09:50] LABS: ALBUMIN 2.5 GM/DL (3.2-5.2); ALT/SGPT 13 U/L (12-78); AMYLASE 55 U/L (25-115); BILIRUBIN,DIRECT 0.2 MG/DL (0.0-0.2); BILIRUBIN,TOTAL 0.8 MG/DL (0.2-1.0); BLOOD UREA NITROGEN 43 MG/DL (7-18); CALCIUM LEVEL 8.5 MG/DL (8.8-10.2); CARBON DIOXIDE LEVEL 25 MEQ/L (21-32); CHLORIDE LEVEL 107 MEQ/L (98-107); CPK CREATINE PHOSPHOKINASE 130 U/L (26-192); CREATININE FOR GFR 1.53 MG/DL (0.55-1.30); GLOMERULAR FILTRATION RATE 35.1 (>39); GLUCOSE, FASTING 136 MG/DL (70-100); LIPASE 232 U/L (73-393); POTASSIUM SERUM 4.5 MEQ/L (3.5-5.1); SODIUM LEVEL 139 MEQ/L (136-145); TOTAL PROTEIN 5.8 GM/DL (6.4-8.2); TROPONIN I < 0.02 NG/ML (< 0.10)
[2018-07-03 10:22] LABS: PERCENT SATURATION 17.6 % (13.2-45.0)
[2018-07-03] MEDS ORDERED: ISOVUE-370 76% 125ML VIAL (Q9967 PER ML) As Ordered ONE (10:47)
--- NOTE | 2018-07-03 10:59 | REP ---
CHEST, PORTABLE: AP portable view of the chest is performed and compared to a prior study of 02/28/2013. There are bilateral calcified pleural plaques again noted not significantly changed. Calcified granulomas seen in the right apex. No superimposed acute infiltrate is seen. Cardiac silhouette is mildly prominent. There is mild calcification of the thoracic aorta. Calcified right paratracheal lymph nodes are again noted. Mediastinal silhouette is unchanged. Right dual lead pacemaker is again noted. There are degenerative changes of the spine. IMPRESSION: Stable chronic findings. No acute infiltrate. Electronically Signed by Breezy Espinal MD 07/03/2018 05:43 P
[2018-07-03] MEDS: ENOXAPARIN 40 MG/0.4 ML SYRINGE (J1650) SC SCH (11:53)
--- NOTE | 2018-07-03 13:08 | REP ---
CT ANGIOGRAM CHEST: TECHNIQUE: Axial contrast enhanced images from the thoracic inlet to the upper abdomen using 100 mL Isovue 370 intravenous contrast material with multiplanar reformations. There is no CT evidence of pulmonary embolism. There is no thoracic aortic aneurysm or dissection. Heart is not enlarged. I do not see evidence of mediastinal, hilar, or chest wall lymphadenopathy. Large superior mediastinal mass is partially calcified and appears to communicate with the right thyroid, most consistent with large substernal goiter. Calcified right paratracheal lymph nodes are seen. There are scattered calcified granulomas in the right lung. There are bilateral calcified pleural plaques indicating prior asbestos exposure. Anteriorly on the right a calcified pleural plaque demonstrates focal nodular soft tissue along its inner aspect with linear radiating opacities into the right lung. This could represent focal pleural and parenchymal fibrosis, but I cannot totally exclude early neoplasm or mesothelioma. The focal nodular thickening measures about 2 cm in diameter. Followup is recommended. There is no pleural or pericardial effusion. There are degenerative changes of the spine. In the visualized portions of the upper abdomen there is a small nodule of the left adrenal gland approximately 1.2 cm in diameter. This probably represents an adenoma. IMPRESSION: No CT evidence of pulmonary embolism. No thoracic aortic aneurysm or dissection. Calcified right paratracheal lymph nodes. Right lung calcified granulomas. Bilateral calcified pleural plaques. Along the inner aspect of one of the anteriorly located right sided calcified pleural plaques there is nodular soft tissue thickening approximately 2 cm in diameter with adjacent linear opacities. This may simply represent focal pleural and parenchymal fibrosis. However, early development of neoplasm or mesothelioma cannot be excluded. Followup is recommended. Small left adrenal nodule 1.2 cm in diameter probably represents an adenoma. Large superior mediastinal mass is partially calcified and appears to communicate with the right thyroid bed, most consistent with large substernal goiter. Electronically Signed by Breezy Espinal MD 07/03/2018 06:12 P
--- NOTE | 2018-07-03 13:38 | ECGEPIP ---
Stationary ECG Study [facility] Test Date: 2018-07-03 Pat Name: ROBERT ALMAZAN Department: Room: [place] [address] Gender: F Mixing Engineer: : [id number] Requested By: LUANNE LUX Order Number: [id number] Reading MD: Haja Wilson Measurements Intervals Harriet Rate: 74 P: 25 NJ: 190 QRS: 4 QRSD: 98 T: 32 QT: 386 QTc: 431 Interpretive Statements SINUS RHYTHM Within normal limits. Electronically Signed On 07-03-2018 13:38:37 EDT by Haja Wilson
[2018-07-03 20:09] LABS: HEMATOCRIT 29.2 % (36.0-47.0); HEMOGLOBIN 9.6 g/dl (12.0-15.5)
[2018-07-03 22:00] VITALS: BP 157/72
[2018-07-04 06:00] VITALS: BP 159/69
[2018-07-04 07:30] VITALS: BP 183/79
[2018-07-04] MEDS: OMEGA-3 1000MG CAPSULE PO SCH (07:40)
[2018-07-04] MEDS: OMEPRAZOLE 20 MG CAP PO SCH (07:40)
[2018-07-04] MEDS: ATORVASTATIN 20 MG TAB PO SCH (07:40)
[2018-07-04] MEDS: ATENOLOL 50 MG TAB PO SCH (07:41)
[2018-07-04] MEDS: LACTOBACILLUS ACIDOPHILUS CAP (BACID) PO SCH (07:41)
[2018-07-04] MEDS: MAGNESIUM OXIDE 400 MG TAB (MAG-OX) PO SCH (07:41)
[2018-07-04] MEDS: ASPIRIN 81 MG ENTERIC TAB PO SCH (07:41)
[2018-07-04] MEDS: ALLOPURINOL 300 MG TAB PO SCH (07:41)
[2018-07-04] MEDS: **hydrALAZINE** 50 MG TAB PO SCH (07:42)
[2018-07-04] MEDS: LORATADINE 10 MG TAB PO SCH (07:42)
[2018-07-04] MEDS: PROPYLTHIOURACIL 50 MG TAB PO SCH (07:42)
[2018-07-04 07:43] VITALS: BP 172/74
[2018-07-04] MEDS: SENOKOT S TAB PO SCH (07:43)
[2018-07-04] MEDS: ENOXAPARIN 40 MG/0.4 ML SYRINGE (J1650) SC SCH (07:43)
[2018-07-04] MEDS: DOCUSATE SODIUM 100 MG CAP PO SCH (07:43)
[2018-07-04] MEDS: IRBESARTAN 150 MG TAB PO SCH (07:43)
[2018-07-04] MEDS: ACETAMINOPHEN 325 MG TAB PO PRN (07:43)
[2018-07-04 08:45] VITALS: BP 118/58
[2018-07-04 09:33] LABS: BASO % 0.7 % (0.0-1.0); EOS # 0.2 10^3/uL (0.0-0.50); EOS % 3.7 % (0.0-3.0); HEMATOCRIT 30.6 % (36.0-47.0); HEMOGLOBIN 9.8 g/dl (12.0-15.5); LYMPH # 1.2 10^3/uL (1.5-4.5); LYMPH % 19.2 % (24.0-44.0); MEAN CORPUSCULAR HEMOGLOBIN 29.7 pg (27.0-33.0); MEAN CORPUSCULAR VOLUME 92.7 fl (80.0-96.0); MONO # 0.6 10^3/uL (0.0-0.8); MONO % 10.3 % (0.0-5.0); NEUTROPHILS % 65.4 % (36.0-66.0); PLATELET COUNT, AUTOMATED 219 10^3/uL (150-450); WHITE BLOOD COUNT 6.1 10^3/uL (4.0-10.0)
[2018-07-04] MEDS ORDERED: NS 1,000 ML IV ONE (10:00)
[2018-07-04 10:18] LABS: CALCIUM LEVEL 8.6 MG/DL (8.8-10.2); CREATININE FOR GFR 1.21 MG/DL (0.55-1.30); FREE THYROXINE INDEX 2.7 % (1.3-4.8); GLOMERULAR FILTRATION RATE 46.1 (>39); POTASSIUM SERUM 4.1 MEQ/L (3.5-5.1); THYROID STIMULATING HORMONE 0.057 uIU/ML (0.358-3.740); THYROXINE (T4) 8.6 UG/DL (4.5-12.0)
--- NOTE | 2018-07-04 12:15 | IPNPDOC ---
Date Seen The patient was seen on 07/04/18. Progress Note SUBJECTIVE: Pt is anxious to go home. creatinine back to normal. "I was told I can go home today." s/p 2units rbc transfusion 07/03/18 due to hgb 7, now 9. at 0100 am 07/03/18, pt c/o chest pain in the midsternal area without radiation, diaphoresis, vomiting, lasting for about 15 minutes relieved. trop neg echo ordered. ct chest no pe, (+) goiter, adrenal adenoma. denies brbpr, black tarry stools, sob, cough, fever, lightheadedness, or dizziness. no active oozing from surgical site. PHYSICAL EXAMINATION: VITALS PLS SEE BELOW GENERAL: Patient is awake, alert and oriented times three. Answers questions appropriately. No cyanosis, jugular venous distention (JVD), cervical lymphadenopathy. Respiratory: Patient does not use accessory muscles. HEENT: pallor Pupils round reactive to light and accommodation. Extraocular muscles are intact. LUNGS: Clear to auscultation. No wheezing, rales or rhonchi. HEART: S1, S2. Sinus rhythm. ABDOMEN: Soft, nontender, nondistended. Positive bowel sounds. EXTREMITIES: No cyanosis, clubbing or any pitting edema. LABORATORY DATA: pls see below IMAGING STUDIES: Renal ultrasound 02/16/2018, mild left hydronephrosis right kidney with small cyst. No compelling duplex sonographic evidence of significant renal artery stenosis. 02/15/2018, IR fluoro guidance aortogram right common femoral artery. ASSESSMENT AND PLAN: 78-year-old female, past medical history significant for hypertension, dyslipidemia, migraine headaches, hyperthyroidism, reflux, gout, diabetes, denies any prior history of smoking had been having on and off bilateral lower extremity pain which is worsened with shopping and walking around. She states that she has had these symptoms for about a year, but they have been unbearable for the last few months. She presented to her primary care physician who referred her to vascular surgery. She was found to have peripheral vascular disease and underwent a left femoral-popliteal bypass grafting on 06/28/2018. The patient states that she still continues to have slight pain and that her blood pressure usually runs slow at home for which she usually holds her blood pressure medications. Glucose level has been running normal at home according to the patient. Status post left femoral to popliteal artery bypass graft with PTFE grafting for intermittent claudication and occlusion of the ankle, complete occlusion of the superficial femoral arterial artery at the left common femoral artery into the popliteal artery. Postoperative management per Dr. Rivas, vascular surgery. Currently on aspirin 81 mg daily. Chest pain most likey GERD on ppi , but may be demand-mediated ischemia from severe anemia trop negative so far. check echo . transfuse rbc no PE on ct chest. acute blood loss anemia no signs of gi bleed on ppis/p PTFE grafting type and cross 2 units rbc H&H monitoring Hypertension. on atenolol 50 twice a day, hydralazine 50 twice a day. Previous renal ultrasound was not convincing for renal artery stenosis. She is to continue on irbesartan 300 daily. Hyperlipidemia. Continue on Lipitor, fish oil. Allergic rhinitis. On Claritin. magnesium deficiency. On supplemental magnesium. Diabetes. On consistent carbohydrate diet. Will check A1c. Deep venous thrombosis (DVT) prophylaxis.on ASA, and lvoenox sq started 07/03/18 Hyperthyroidism. Continue on PTU. 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 Goiter: outpt fu with her entry level account manager disposition: dc home if ok w primary team VS, I&O, 24H, Fishbone Vital Signs/I&O Vital Signs Date Time Temp Pulse Resp B/P (MAP) Pulse Ox O2 Delivery O2 Flow Rate FiO2 07/04/18 08:45 66 118/58 (78) 07/04/18 07:30 98.3 20 96 07/03/18 01:50 2.0 I&O- Last 24 Hours up to 6 AM 07/04/18 06:00 Intake Total 910 ml Output Total 1700 ml Balance -790 ml Laboratory Data 24H LABS Laboratory Tests 2 07/03/18 09:35: Reticulocyte # (auto) 63.8, Differential Slide Review Report, Peripheral Blood Smear Path Consult PERIPHERAL SMEAR, Percent Reticulocyte Count 2.7H, Reticuloc yte Hemoglobin Equivalent 29.9, Iron Level 49L, Total Iron Binding Capacity 279, Transferrin % Saturation 17.6, Ferritin 43 CBC/BMP Laboratory Tests 07/03/18 19:52 LEONIE GUZMAN MD Jul 04, 2018 09:05
[2018-07-04 12:49] LABS: CALCIUM LEVEL 8.5 MG/DL (8.8-10.2); CREATININE FOR GFR 1.24 MG/DL (0.55-1.30); GLOMERULAR FILTRATION RATE 44.8 (>39); POTASSIUM SERUM 4.5 MEQ/L (3.5-5.1)
--- NOTE | 2018-07-04 14:32 | REP ---
Right lower extremity arterial Doppler ultrasound: History: Right leg claudication. Findings: Ankle brachial index could not be acquired because of noncompressible dilated vessels. There is mixed plaquing visible in the right lower extremity arterial system. Monophasic flow is seen at and distal to the proximal superficial femoral artery no high-grade stenosis is seen. Velocity chart right lower extremity arteries: Right CF A 101 cm/S Profunda 112 Proximal SFA 74 Mid SFA 142 Distal SFA 80 Popliteal 56 Proximal PRESLEY 22 Tibioperoneal trunk 38 Proximal ZOO KEEPER 17 Distal ZOO KEEPER 27 Distal AT A 39 Electronically Signed by Salty Peck MD 07/04/2018 02:23 P
--- NOTE | 2018-07-13 10:51 | RO ---
DATE OF PROCEDURE: 06/28/2018 PREOPERATIVE DIAGNOSIS: Left lower extremity claudication, diabetes mellitus, hypertension, hyperlipidemia, gout, hypercholesterolemia, left superficial femoral arterial occlusion. Complete total occlusion of the left superficial femoral artery. POSTOPERATIVE DIAGNOSIS: Left lower extremity claudication, diabetes mellitus, hypertension, hyperlipidemia, gout, hypercholesterolemia, left superficial femoral arterial occlusion. Complete total occlusion of the left superficial femoral artery. PROCEDURE: Left femoral endarterectomy, left femoral to above-knee popliteal artery bypass graft and 8 mm well-padded PTFE graft. SURGEON: Dr. Yariel Rivas HOSPITALITY HOUSE SUPERVISOR: None. INDICATIONS: The patient is a 78-year-old female with left lower extremity claudication and angiography showing complete occlusion of her left superficial femoral artery. The patient will undergo femoral popliteal artery bypass grafting. Risks, benefits and alternative options were discussed with the patient. ANESTHESIA: Local MAC. ESTIMATED BLOOD LOSS: 150 mL IV FLUIDS: 1200 mL HEPARIN: 7000 units followed by an additional 3,000 units, protamine 50 mg SPECIMEN: Left femoral plaque. PROCEDURE: The patient was taken to the operating room, placed supine on the operating table and prepped and draped in a standard surgical fashion. The incision made in the inguinal region was an oblique incision overlying the left common femoral artery which was sharply dissected proximally and distally. The above knee popliteal artery was exposed through a longitudinal incision in the above knee region. The patient was given heparin after which the graft was tunneled from the femoral incision to the popliteal incision. The graft was fashion with a bell and anastomosed to the left common femoral artery after the left common femoral artery had been clamped proximally distally and endarterectomy performed due to a large amount of plaque within the left femoral artery. The graft was flushed and flow was reestablished through the left common femoral artery. The graft was then fashion with the bell. The popliteal artery was clamped proximally distally. An arteriotomy made and the graft anastomosed to the left popliteal artery in an end-to-side fashion using 6-0 Prolene suture. Good flow was noted in the popliteal artery distal and anastomosis with Doppler ultrasound evaluation. Hemostasis was obtained after which the incisions were closed with 2-0 Vicryl to approximate the deeper layers and analilia to approximate the skin. Dressings were applied. The patient tolerated the procedure well. All instrument, sponge, needle counts were correct at the end the case. There were no complications. Dr. Rivas was present for and directed the entire case. The patient was transferred to the recovery room awake, alert and in stable condition.
--- NOTE | 2018-07-13 14:07 | DSES ---
DATE OF ADMISSION: 06/28/2018 DATE OF DISCHARGE: 07/04/2018 SURGERIES PERFORMED DURING THE HOSPITALIZATION: Left femoral to above-knee popliteal artery bypass graft with 8 mm polytetrafluorethylene (PTFE) Propaten graft. HOSPITAL COURSE: The patient was admitted and underwent a left femoral to above-knee popliteal artery bypass graft with significant improvement in the perfusion of her left lower extremity. The patient recuperated well and was ambulating with good pain control and was subsequently discharged home on 07/04/2018. The patient will followup in the office in 7-10 days.
== END 2018-07-04 14:27 | disposition home or self-care (01) | DRG 253 ==
LOC: M OR 12:27 → M MSPAV 20:27
PROVIDERS: ADMIT Surgery Vascular Surgery; ATTEND Surgery Vascular Surgery
PROC: 041L0JL Bypass Left Femoral Artery to Popliteal Artery with Synthetic Substitute, Open Approach (ICD-10-PCS; principal; 2018-06-28 14:00)
PROC: 30233N1 Transfusion of Nonautologous Red Blood Cells into Peripheral Vein, Percutaneous Approach (ICD-10-PCS; 2018-07-03)
DX: E11.51 Type 2 diabetes mellitus with diabetic peripheral angiopathy without gangrene (principal); D62 Acute posthemorrhagic anemia; I70.212 Atherosclerosis of native arteries of extremities with intermittent claudication, left leg; E03.9 Hypothyroidism, unspecified; I10 Essential (primary) hypertension; E78.5 Hyperlipidemia, unspecified; E78.00 Pure hypercholesterolemia, unspecified; M10.9 Gout, unspecified; D53.9 Nutritional anemia, unspecified; J30.9 Allergic rhinitis, unspecified; H90.0 Conductive hearing loss, bilateral; E05.90 Thyrotoxicosis, unspecified without thyrotoxic crisis or storm; E83.42 Hypomagnesemia; K58.9 Irritable bowel syndrome, unspecified; K21.9 Gastro-esophageal reflux disease without esophagitis; Z95.0 Presence of cardiac pacemaker; K26.9 Duodenal ulcer, unspecified as acute or chronic, without hemorrhage or perforation; Z88.8 Allergy status to other drugs, medicaments and biological substances; Z96.652 Presence of left artificial knee joint; Z79.899 Other long term (current) drug therapy

== ENCOUNTER → 2018-07-12 | Outpatient (REF) | payer MEDICARE ==
[~2018-07-12] MED LIST changes: -LR 1,000 ML IV ONE
[2018-07-12 13:24] LABS: HEMATOCRIT 34.5 % (36.0-47.0); MEAN CORPUSCULAR HEMOGLOBIN 30.2 pg (27.0-33.0); MEAN CORPUSCULAR HGB CONC 31.9 g/dl (32.0-36.5); MEAN CORPUSCULAR VOLUME 94.8 fl (80.0-96.0); PLATELET COUNT, AUTOMATED 328 10^3/uL (150-450); RED BLOOD COUNT 3.64 10^6/uL (4.00-5.40); WHITE BLOOD COUNT 10.1 10^3/uL (4.0-10.0)
[2018-07-12 13:51] LABS: CREATININE FOR GFR 1.67 MG/DL (0.55-1.30); GLOMERULAR FILTRATION RATE 31.8 (>39); POTASSIUM SERUM 4.6 MEQ/L (3.5-5.1)
== END ==
LOC: M SFHCPLAZ 11:43
PROVIDERS: ATTEND Family Medicine
DX: D62 Acute posthemorrhagic anemia (principal); N18.3 Chronic kidney disease, stage 3 (moderate)

== ENCOUNTER → 2018-07-13 | Outpatient (CLI) | payer MEDICARE ==
[~2018-07-13] MED LIST changes: -ASPI1TAB PO; +ASPI81TA26 PO; +BUPIVACAINE HCL 0.5% 10 ML VIAL As Ordered ONE; +HEPARIN 1,000 UNITS/ML 10ML VIAL (FOR RADIOLOGY& DIALYSIS ONLY) As Ordered ONE; +ISOVUE-300 61% 100ML VIAL (Q9967) As Ordered ONE; +LIDOCAINE 2% MDV 20 ML VIAL As Ordered ONE; +MIDAZOLAM INJ 2 MG/2 ML VIAL (J2250) As Ordered ONE; +PROTAMINE SULF INJ 50 MG/5 ML VIAL (J2720) As Ordered ONE; +diphenhydrAMINE INJ 50MG/ML VIAL (J1200) As Ordered ONE; +fentaNYL 100 MCG/2 ML INJECTION (J3010) As Ordered ONE
[2018-07-13 07:18] LABS: HEMATOCRIT 34.8 % (36.0-47.0); HEMOGLOBIN 11.2 g/dl (12.0-15.5); MEAN CORPUSCULAR HEMOGLOBIN 30.4 pg (27.0-33.0); MEAN CORPUSCULAR HGB CONC 32.2 g/dl (32.0-36.5); MEAN CORPUSCULAR VOLUME 94.6 fl (80.0-96.0); PLATELET COUNT, AUTOMATED 315 10^3/uL (150-450); RED BLOOD COUNT 3.68 10^6/uL (4.00-5.40); WHITE BLOOD COUNT 8.1 10^3/uL (4.0-10.0)
[2018-07-13 07:47] LABS: CALCIUM LEVEL 8.7 MG/DL (8.8-10.2); CREATININE FOR GFR 1.66 MG/DL (0.55-1.30); POTASSIUM SERUM 5.4 MEQ/L (3.5-5.1)
== END ==
LOC: M IRPRO 06:17
PROVIDERS: ATTEND Surgery Vascular Surgery
DX: I70.213 Atherosclerosis of native arteries of extremities with intermittent claudication, bilateral legs (principal)

== ENCOUNTER → 2018-09-12 | Outpatient (CLI) | payer MEDICARE ==
[~2018-09-12] MED LIST changes: +ACETAMINOPHEN 325 MG TAB As Ordered ONE; -ISOVUE-300 61% 100ML VIAL (Q9967) As Ordered ONE; +ISOVUE-300 61% 50ML VIAL (Q9967) As Ordered ONE
[2018-09-12 07:35] LABS: HEMATOCRIT 36.9 % (36.0-47.0); HEMOGLOBIN 11.7 g/dl (12.0-15.5); MEAN CORPUSCULAR HEMOGLOBIN 30.4 pg (27.0-33.0); MEAN CORPUSCULAR HGB CONC 31.7 g/dl (32.0-36.5); MEAN CORPUSCULAR VOLUME 95.8 fl (80.0-96.0); PLATELET COUNT, AUTOMATED 256 10^3/uL (150-450); RED BLOOD COUNT 3.85 10^6/uL (4.00-5.40); WHITE BLOOD COUNT 6.5 10^3/uL (4.0-10.0)
[2018-09-12 07:55] LABS: CREATININE FOR GFR 1.23 MG/DL (0.55-1.30); GLOMERULAR FILTRATION RATE 45.2 (>39); POTASSIUM SERUM 4.2 MEQ/L (3.5-5.1)
--- NOTE | 2018-09-16 11:28 | REPIR ---
DATE OF PROCEDURE: 09/12/2018 ATTENDING SURGEON: Dr. Corrina Rivas ASSISTANTS: Augusta Phan and Ariana Cooper PREOPERATIVE DIAGNOSES: Right lower extremity pain. Right superficial femoral atherosclerotic arterial occlusive disease on ultrasound. POSTOPERATIVE DIAGNOSES: Right lower extremity pain. Right superficial femoral atherosclerotic arterial occlusive disease on ultrasound. PROCEDURE: Left common femoral arterial cannulation. Selective right common femoral artery catheter placement with right lower extremity angiogram. Selective right superficial femoral artery catheter placement with right lower extremity angiogram. Selective right popliteal artery catheter placement with right lower extremity angiogram. Right superficial femoral and popliteal artery angioplasty with 6 x 100 balloon. Right popliteal artery angioplasty and stent with a 7 x 120 TOMMIE drug-eluting stent postdilated with a 6 x 200 balloon. Right superficial femoral artery angioplasty and stent with a 7 x 120 TOMMIE drug-eluting stent postdilated with a 6 x 200 balloon. Right common femoral artery angioplasty with a 6 x 200 balloon. Right superficial femoral artery angioplasty with 6 x 200 balloon. MYNX closure of the left common femoral arteriotomy. INDICATION: The patient is a 78-year-old female with bilateral lower extremity claudication who had previously undergone a left femoral to above-knee popliteal artery bypass graft due to superficial femoral arterial occlusion and will now undergo a right lower extremity angiogram due to right lower extremity claudication. ANESTHESIA: Local with 10 mL of 2% lidocaine mixed with 0.5% Marcaine, Benadryl 50 mg, heparin 7000 units, protamine 50 mg. COMPLICATIONS: None. DRAINS: None. SPECIMENS: None. IMPLANTS: Stent in the right popliteal and superficial femoral artery with two 7 x 120 TOMMIE drug-eluting stents. Left common femoral arteriotomy closure with a MYNX closure device. PROCEDURE: The patient was taken to the angiography suite, placed supine on the angiography room table and then prepped and draped in a standard surgical fashion. The left common femoral artery was cannulated. A catheter was advanced up to the bifurcation and placed in the right common femoral artery and angiogram was performed. This showed severe disease along the course of the right common femoral artery, superficial femoral artery and popliteal artery. The right common femoral, superficial femoral, and popliteal artery were angioplastied with a 6 x 200 balloon. There was still residual stenosis in the distal superficial femoral and popliteal artery and these areas were stented with two 7 x 120 TOMMIE drug-eluting stents which were postdilated with 6 x 200 balloons. Completion angiography showed resolution of the stenosis with excellent flow into the right lower extremity. A MYNX closure device was used to close the arteriotomy in the left common femoral artery with an additional 10 minutes of adjunctive pressure applied for hemostasis. Dressings were then applied. The patient tolerated procedure well. All instrument and needle counts were correct at the end of the case. There were no complications. Dr. Rivas was present for and directed the entire case. The patient was transferred to the holding area and subsequently discharged in stable condition.
== END | disposition home or self-care (01) ==
LOC: M IRPRO 06:50
PROVIDERS: ATTEND Surgery Vascular Surgery
DX: I70.203 Unspecified atherosclerosis of native arteries of extremities, bilateral legs (principal)
CPT/HCPCS: 37226; 37230; 75710; 80048; 85027; C1725; C1760; C1769; C1874; C1887; C1894; J1200; J2720; Q9967

== ENCOUNTER → 2018-10-26 | Outpatient (CLI) | payer MEDICARE ==
[~2018-10-26] MED LIST changes: -ACETAMINOPHEN 325 MG TAB As Ordered ONE; -BUPIVACAINE HCL 0.5% 10 ML VIAL As Ordered ONE; -HEPARIN 1,000 UNITS/ML 10ML VIAL (FOR RADIOLOGY& DIALYSIS ONLY) As Ordered ONE; -ISOVUE-300 61% 50ML VIAL (Q9967) As Ordered ONE; -LIDOCAINE 2% MDV 20 ML VIAL As Ordered ONE; -MIDAZOLAM INJ 2 MG/2 ML VIAL (J2250) As Ordered ONE; -PROTAMINE SULF INJ 50 MG/5 ML VIAL (J2720) As Ordered ONE; -diphenhydrAMINE INJ 50MG/ML VIAL (J1200) As Ordered ONE; -fentaNYL 100 MCG/2 ML INJECTION (J3010) As Ordered ONE
--- NOTE | 2018-10-26 10:37 | REP ---
CT of the chest without IV contrast: Comparison is to 07/30/2018. There is a pleural-based nodule adjacent to the calcific pleural plaque anteriorly in the right upper lobe spanning images 46 - 55. On the study today this lesion measures 2.2 x 9.5 x 12.3 centimeters. This lesion previously measured 12.4 x 9.5 x 12.2 cm. There has been no significant interval size increase. There are multiple bilateral calcified pleural plaques, unchanged. This may be from previous asbestos exposure. Right lung calcified granulomas and right hilar calcified lymph nodes are again identified, unchanged, compatible with stable granulomas disease. Marked enlargement of the thyroid gland extending into the substernal mediastinum containing multiple nodules and calcifications is unchanged, compatible with thyroid goiter. Is unchanged. There is a 1.2 cm left adrenal nodule, unchanged. The CT density of the nodule is 6.7 HU on this study without IV contrast. This is compatible with benign adenoma. There are no acute infiltrates or pleural effusions. No other lung nodules or masses are identified. There is no mediastinal lymph node enlargement. No axillary lymph node enlargement. The study is insensitive for hilar lymph node enlargement in the absence of IV contrast. The visualized areas of the hepatic parenchyma, gallbladder, pancreas and spleen are unremarkable. Impression: The known pleural-based right lung nodule adjacent to a calcified pleural plaque is unchanged. The thyroid goitrous enlargement is unchanged. The the right lung and right hilar calcified granulomas are unchanged. The left adrenal nodule is unchanged and has a CT density of 6.7 HU. This is compatible with benign adenoma. Electronically Signed by Breezy Thompson MD 10/26/2018 10:29 A
== END ==
LOC: M RAD 08:21
PROVIDERS: ATTEND Internal Medicine Pulmonary Disease
DX: R91.8 Other nonspecific abnormal finding of lung field (principal)

== ENCOUNTER → 2018-10-26 | Outpatient (CLI) | payer MEDICARE ==
--- NOTE | 2018-10-26 12:33 | REP ---
BILATERAL LOWER EXTREMITY DUPLEX DOPPLER ARTERIAL ULTRASOUND: Real-time ultrasound evaluation and duplex Doppler interrogation of bilateral lower extremity arterial systems performed. Left femoral to popliteal graft is noted. Scattered mild to moderate plaquing is seen diffusely bilaterally. There appears to be stenosis of the distal right anterior tibial artery. The left superficial femoral artery is occluded. There appears to be stenosis of the distal left posterior tibial artery. LORNE right is 0.8 and left 0.7. Biphasic waveforms are seen bilaterally except for monophasic waveforms in the left popliteal artery and calf arteries. Left fem-pop graft is patent, proximal peak systolic velocity 25 cm/s, mid aspect 47.8 cm/s, and distally 31.8 cm/s. PEAK SYSTOLIC VELOCITY RIGHT LEFT Common femoral artery 122.0 cm/s 118.0 cm/s Profunda 94.1 174.0 Proximal SFA 146.0 occluded Superficial femoral artery mid 79.2 occluded Superficial femoral artery distal 79.9 occluded Popliteal 88.5 78.4 Proximal anterior tibial artery 75.1 29.3 Tibial peroneal trunk 91.9 69.8 Proximal posterior tibial artery 89.5 90.2 Distal posterior tibial artery 67.1 122.0 Distal anterior tibial artery 202.0 32.1 IMPRESSION: Patent left fem-pop graft bypassing an occluded [place] left superficial femoral artery. Scattered mild to moderate plaquing bilaterally with suspected stenosis n the distal right anterior tibial artery and distal left posterior tibial artery. Electronically Signed by Breezy Espinal MD 10/28/2018 12:56 P
== END ==
LOC: M RAD 08:17
PROVIDERS: ATTEND Physician Assistant
DX: I70.213 Atherosclerosis of native arteries of extremities with intermittent claudication, bilateral legs (principal)

== ENCOUNTER → 2019-05-03 | Outpatient (CLI) | payer MEDICARE ==
[~2019-05-03] MED LIST changes: +OMEP40CA97 PO
--- NOTE | 2019-05-03 17:08 | REP ---
Bilateral lower extremity arterial Doppler ultrasound: Right lower extremity: The dorsalis pedis and LAND CLASSIFIER are noncompressible, therefore the LORNE could not be performed. Peak Systolic Phasicity Velocity PARASITOLOGY TEACHER 146.8 biphasic Profunda 100 biphasic SFA prox 139.6 biphasic SFA mid 71 biphasic SFA dist 54.9 biphasic Pop 109.5 biphasic PRESLEY prox 64.5 biphasic Tib/P tr 97 point biphasic LAND CLASSIFIER pr 27.2 monophasic LAND CLASSIFIER dst 27.0 monophasic PRESLEY dst 157.9 biphasic Left lower extremity: The dorsalis pedis and LAND CLASSIFIER are noncompressible, therefore the LORNE could not be performed. Peak Systolic Phasicity Velocity PARASITOLOGY TEACHER 74.0 triphasic Profunda 147.7 biphasic SFA prox 160 monophasic SFA mid occluded -- SFA dist occluded -- Pop 67.5 biphasic PRESLEY prox 46 biphasic Tib/P tr 56.5 biphasic LAND CLASSIFIER pr 66.0 biphasic LAND CLASSIFIER dst 17.5 monophasic PRESLEY dst 95.4 triphasic Right: In the distal right LAND CLASSIFIER there is trickle flow and heavily calcified atheroma. There is a right popliteal fossa fluid collection measuring 3.7 x 1.4 x 3.7 cm, likely a Watts's cyst. Left: There is a bypass graft from the left C F A to the distal SFA. The graft is patent. The [place] SFA is partially to completely occluded from proximal to distal. There is flow reversal in the distal SFA. There is trickle flow in the left distal LAND CLASSIFIER with calcified atheroma, resulting in multiple stenoses/occlusion distally. Electronically Signed by Breezy Thompson MD 05/03/2019 05:00 P
== END ==
LOC: M RAD 11:57
PROVIDERS: ATTEND Physician Assistant
DX: I70.92 Chronic total occlusion of artery of the extremities (principal); I70.213 Atherosclerosis of native arteries of extremities with intermittent claudication, bilateral legs

== ENCOUNTER → 2019-05-03 | Outpatient (CLI) | payer MEDICARE ==
--- NOTE | 2019-05-03 17:22 | REP ---
CT of the chest without IV contrast for lung nodule. Followup: Comparisons are 10/26/2018 and 07/03/2018. There are multiple bilateral calcific pleural plaques. There is a nodule adjacent to a calcific pleural plaque anteriorly in the right upper lobe on image 50. The nodule today measures 12.6 x 10.2 mm. This measured 12.3 x 9.5 mm on 10/26/2018 and 9.5 x 12.2 mm on 07/03/2018. It has not significantly changed in size. There are no new nodules. There are no infiltrates or pleural effusions. The thyromegaly with multiple calcifications is again noted, unchanged. No mediastinal or axillary adenopathy is identified. The study is insensitive for hilar adenopathy in the absence of IV contrast. The calcified granuloma right upper lobe and the calcified granulomas in the right hilus are unchanged. In the upper abdomen the 12 mm left adrenal low density nodule is unchanged, likely a benign adenoma as discussed on the prior study. Impression: There has been no significant interval change. Electronically Signed by Breezy Thompson MD 05/03/2019 05:14 P
== END ==
LOC: M RAD 11:55
PROVIDERS: ATTEND Internal Medicine Pulmonary Disease
DX: R91.8 Other nonspecific abnormal finding of lung field (principal)

== ENCOUNTER → 2019-06-06 | Outpatient (REF) | payer MEDICARE ==
[~2019-06-06] MED LIST changes: -IRBE300T10 PO; +IRBE300T7 PO
[2019-06-06 13:57] LABS: HEMOGLOBIN A1c 6.3 %
[2019-06-06 14:01] LABS: ALBUMIN 3.8 GM/DL (3.2-5.2); BILIRUBIN,TOTAL 0.7 MG/DL (0.2-1.0); CALCIUM LEVEL 9.2 MG/DL (8.8-10.2); CREATININE FOR GFR 1.17 MG/DL (0.55-1.30); FREE T4 1.16 NG/DL (0.76-1.46); GLOMERULAR FILTRATION RATE 47.7 (>39); POTASSIUM SERUM 4.6 MEQ/L (3.5-5.1); THYROID STIMULATING HORMONE 0.167 uIU/ML (0.358-3.740); TOTAL PROTEIN 6.6 GM/DL (6.4-8.2)
== END ==
LOC: M SFHCPLAZ 10:59
PROVIDERS: ATTEND Family Medicine
DX: E11.22 Type 2 diabetes mellitus with diabetic chronic kidney disease (principal); I12.9 Hypertensive chronic kidney disease with stage 1 through stage 4 chronic kidney disease, or unspecified chronic kidney disease; E05.90 Thyrotoxicosis, unspecified without thyrotoxic crisis or storm

== ENCOUNTER → 2019-06-27 | Outpatient (REF) | payer MEDICARE ==
[2019-06-27 15:04] LABS: BASO # 0.1 10^3/uL (0.0-0.2); BASO % 0.7 % (0.0-1.0); EOS # 0.1 10^3/uL (0.0-0.5); EOS % 1.6 % (0.0-3.0); HEMATOCRIT 36.6 % (36.0-47.0); HEMOGLOBIN 12.1 g/dl (12.0-15.5); LYMPH # 1.4 10^3/uL (1.5-5.0); LYMPH % 19.3 % (24.0-44.0); MEAN CORPUSCULAR HEMOGLOBIN 30.9 pg (27.0-33.0); MEAN CORPUSCULAR HGB CONC 33.1 g/dl (32.0-36.5); MEAN CORPUSCULAR VOLUME 93.4 fl (80.0-96.0); MONO # 0.7 10^3/uL (0.0-0.8); MONO % 9.3 % (0.0-5.0); NEUTROPHILS # 5.1 10^3/uL (1.5-8.5); NEUTROPHILS % 68.6 % (36.0-66.0); PLATELET COUNT, AUTOMATED 221 10^3/uL (150-450); RED BLOOD COUNT 3.92 10^6/uL (4.00-5.40); WHITE BLOOD COUNT 7.4 10^3/uL (4.0-10.0)
[2019-06-27 15:17] LABS: CREATININE FOR GFR 1.18 MG/DL (0.55-1.30); GLOMERULAR FILTRATION RATE 47.3 (>39); POTASSIUM SERUM 4.1 MEQ/L (3.5-5.1)
== END ==
LOC: M SFHCPLAZ 13:50
PROVIDERS: ATTEND Nurse Practitioner Family
DX: J06.9 Acute upper respiratory infection, unspecified (principal)

== ENCOUNTER → 2019-06-27 | Outpatient (CLI) | payer MEDICARE ==
--- NOTE | 2019-06-27 14:27 | REPPI ---
Chest x-ray: Two views. History: Cough. Comparison chest x-ray: July 03, 2018. Findings: There is extensive calcific pleural plaquing bilaterally unchanged and consistent with previous asbestos exposure. A bipolar pacemaker is seen in the right heart via the right side as before. No acute infiltrate is seen. Pleural angles are sharp. There are degenerative changes in the thoracic spine. There are surgical clips in the soft tissues of the neck bilaterally above the thoracic inlet. Trachea deviates somewhat to the left consistent with thyroid enlargement on the right. This is unchanged. Impression: Bilateral calcific pleural plaquing. Pacemaker. No active cardiopulmonary disease. Electronically Signed by Salty Peck MD 06/27/2019 02:19 P
== END ==
LOC: M PLAIMG 14:10
PROVIDERS: ATTEND Nurse Practitioner Family
DX: M51.34 Other intervertebral disc degeneration, thoracic region (principal); R05 Cough; Z95.0 Presence of cardiac pacemaker

== ENCOUNTER → 2019-09-21 | Outpatient (REF) | payer MEDICARE ==
[2019-09-21 17:39] LABS: PERCENT SATURATION 29.8 % (13.2-45.0)
[2019-09-21 17:46] LABS: FOLATE 12.3 NG/ML
== END ==
LOC: M LAB REF 16:32
PROVIDERS: ATTEND Internal Medicine Nephrology
DX: D64.9 Anemia, unspecified (principal)

== ENCOUNTER → 2019-09-21 | Outpatient (CLI) | payer MEDICARE ==
--- NOTE | 2019-09-26 08:39 | REP ---
WHOLE BODY RADIONUCLIDE BONE SCAN: HISTORY: Acute midline low back pain without sciatica. Bone cyst. Sacral lesion at S2 identified on CT study of the abdomen from [facility] dated August 09, 2019. These prior images are retrieved and compared. TECHNIQUE: 21.8 mCi technetium 99m MDP is injected and standard whole body bone scan images are acquired. SCINTIGRAPHIC FINDINGS: There is a normal distribution of skeletal tracer with uptake in bilateral kidneys and in the urinary bladder. There is arthritic uptake in each wrist and in the medial compartment right knee as well as in the midfoot articulations of both lower extremities, right more so than left. There is some mildly increased arthritic uptake in the shoulders. Mild degenerative uptake is seen in the lumbar spine facets but no abnormal sacral uptake is appreciated suggesting that the well-defined sacral radiolucency is a benign perineural cyst. There is photopenia in and about the left knee typical of the metallic components associated with a left knee arthroplasty. The patient gives a history of left knee arthroplasty. 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 Status post left knee arthroplasty. Mild degenerative spondylosis pattern in the lumbar spine. No abnormal sacral uptake seen. Electronically Signed by Salty Peck MD 09/26/2019 12:20 P
== END ==
LOC: M RAD 10:33
PROVIDERS: ATTEND Family Medicine
DX: M85.60 Other cyst of bone, unspecified site (principal); M54.5 Low back pain; M47.816 Spondylosis without myelopathy or radiculopathy, lumbar region; Z96.652 Presence of left artificial knee joint
CPT/HCPCS: 78306; A9503

== ENCOUNTER → 2019-11-23 | Outpatient (CLI) | payer MEDICARE ==
--- NOTE | 2020-01-04 09:01 | REP ---
BILATERAL LOWER EXTREMITY DUPLEX DOPPLER ARTERIAL ULTRASOUND: HISTORY: Peripheral vascular disease. FINDINGS: Real time ultrasound evaluation and duplex Doppler interrogation of the bilateral lower extremity arterial systems is performed. Incidental note is made of a right popliteal cyst, 2.9 x 0.7 x 2.6 cm. There is a bypass graft which is patent from the left common femoral artery to distal superficial femoral artery. The [place] proximal left superficial femoral artery demonstrates trickle flow with occlusion of the mid-[place] superficial femoral artery. Reversal of flow in the distal [place] left superficial femoral artery is noted supplied by the bypass graft. There is significant atherosclerotic plaquing bilaterally in the proximal and distal posterior tibial arteries and anterior tibial arteries. Diffuse biphasic and triphasic wave forms are seen bilaterally except for monophasic wave form in the proximal left SFA and proximal left BRANCH OFFICE MANAGER and distal left PRESLEY and BRANCH OFFICE MANAGER. In the patent bypass graft, biphasic wave forms are noted with peak velocities ranging between 41.4 cm/s to 62.5 cm/s. VELOCITY CHART PSV RIGHT (cm/s) PSV LEFT (cm/s) Femoral artery 147 84.1 Profunda 66.2 78.6 Proximal SFA 108.6 68.5 Mid-SFA 84.8 Occluded Distal SFA 179.6 Reversal 21.7 Popliteal 95.1 58.8 Proximal PRESLEY 42.4 26.8 Tibioperoneal trunk 83.9 62.9 Proximal BRANCH OFFICE MANAGER 43 42.4 Distal BRANCH OFFICE MANAGER Occluded 44.9 Distal PRESLEY 96.6 144.4 MTDD
== END ==
LOC: M RAD 09:11
PROVIDERS: ATTEND Surgery Vascular Surgery
DX: I70.213 Atherosclerosis of native arteries of extremities with intermittent claudication, bilateral legs (principal)

== ENCOUNTER → 2020-01-29 | Outpatient (REF) | payer MEDICARE ==
[2020-01-29 14:20] LABS: HEMOGLOBIN A1c 6.2 %
[2020-01-29 14:44] LABS: CHOLESTEROL RISK RATIO 3.734 (<5); FREE T4 1.14 NG/DL (0.76-1.46); THYROID STIMULATING HORMONE 0.318 uIU/ML (0.358-3.740)
== END ==
LOC: M SFHCPLAZ 11:20
PROVIDERS: ATTEND Family Medicine
DX: E11.22 Type 2 diabetes mellitus with diabetic chronic kidney disease (principal); M81.0 Age-related osteoporosis without current pathological fracture; E78.2 Mixed hyperlipidemia; E05.90 Thyrotoxicosis, unspecified without thyrotoxic crisis or storm

== ENCOUNTER → 2020-04-24 | Outpatient (REF) | payer MEDICARE | LOC: M LAB REF 17:01 | PROVIDERS: ATTEND Internal Medicine Nephrology | DX: D35.02 Benign neoplasm of left adrenal gland (principal) ==

== ENCOUNTER → 2020-05-27 | Outpatient (REF) | payer MEDICARE ==
[2020-05-27 10:52] LABS: HEMOGLOBIN A1c 5.9 %
[2020-05-27 11:07] LABS: FREE T4 1.18 NG/DL (0.76-1.46); THYROID STIMULATING HORMONE 0.114 uIU/ML (0.358-3.740)
== END ==
LOC: M SFHCPLAZ 08:56
PROVIDERS: ATTEND Family Medicine
DX: E05.90 Thyrotoxicosis, unspecified without thyrotoxic crisis or storm (principal); E11.22 Type 2 diabetes mellitus with diabetic chronic kidney disease

== ENCOUNTER → 2020-07-04 | Outpatient (CLI) | payer MEDICARE ==
--- NOTE | 2020-07-04 14:41 | REP ---
INDICATION: ATHEROSCLEROSIS. COMPARISON: Comparison study November.. TECHNIQUE: Bilateral lower extremity arterial Doppler ultrasound. FINDINGS: Ankle brachial indices are not accomplished due to noncompressible vessels. In the right lower extremity there is extensive CT plaquing and calcification. Monophasic arterial Doppler waveforms are noted in the proximal and distal anterior and posterior tibial arteries on the right. Otherwise, more normal biphasic waveforms are seen in the right lower extremity. No high-grade stenosis or occlusion is seen in the right leg. In the left leg there is a patent fem-pop bypass graft. [place] superficial femoral artery is occluded. Biphasic arterial Doppler waveforms are noted. The posterior tibial artery is occluded on today's examination in the left lower extremity. Right lower extremity arterial Doppler velocity chart: Right MARBLE CUTTER OPERATOR PSV 176 cm/S Profundal 133 Proximal SFA 140 Mid SFA 148 Distal SFA 93 Popliteal 82 Proximal PRESLEY 101 Tibial-peroneal trunk 67 Proximal GENERAL HANDLING SUPERVISOR 40 Distal GENERAL HANDLING SUPERVISOR 24 Distal PRESLEY 195 Left lower extremity arterial Doppler velocity chart: Left MARBLE CUTTER OPERATOR PSV 181 cm/S Profundal 152 Proximal SFA occluded Mid SFA occluded Distal SFA occluded Popliteal 76 Proximal PRESLEY 101 Tibial-peroneal trunk 58 Proximal GENERAL HANDLING SUPERVISOR occluded Distal GENERAL HANDLING SUPERVISOR occluded Distal PRESLEY 120 Left fem-pop bypass graft chart: A biphasic waveforms. Proximal graft PSV 86 cm/S Mid graft 59 Distal Francis 60 IMPRESSION: New finding of occlusion of the posterior tibial artery on the left. In the left SFA occlusion with patent bypass graft on the left. <Electronically signed by Jeff Peck > 07/04/20 0629
== END ==
LOC: M RAD 12:27
PROVIDERS: ATTEND Surgery Vascular Surgery
DX: I70.212 Atherosclerosis of native arteries of extremities with intermittent claudication, left leg (principal)

== ENCOUNTER → 2020-08-09 | Outpatient (CLI) | payer MEDICARE ==
[~2020-08-09] MED LIST changes: +ISOVUE-370 76% 100ML VIAL As Ordered ONE
--- NOTE | 2020-08-09 14:42 | REP ---
INDICATION: ADRENAL MASS COMPARISON: CT 08/09/2019, 05/03/2019, 10/26/2018 and 07/03/2018. TECHNIQUE: CT Scan of the abdomen was performed without intravenous contrast. Sagittal and coronal reconstruction images are performed. FINDINGS: Lung bases: Calcified pleural plaques are again seen bilaterally, similar to the prior study. There is a small hiatal hernia. Liver: Grossly unremarkable. Gallbladder: Grossly unremarkable. Spleen: Grossly unremarkable. Adrenals: The right adrenal gland is normal. The left adrenal gland again demonstrates an oval low-density nodule measuring approximately 1.6 x 1.2 centimetres. Average Hounsfield unit measurements internally are in the range of 11-12 consistent with an adrenal adenoma. Pancreas: Grossly unremarkable. Kidneys: There is an extrarenal pelvis bilaterally, unchanged. There is a cyst in the mid right kidney 1.5 cm in diameter. Small and large bowel: Unremarkable. Free fluid: None. Abdominal aorta: No aneurysm or dissection. There are moderate atherosclerotic calcifications of the abdominal aorta. Adenopathy: None. Osseous structures: There are degenerative changes of the spine without compression deformity. 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 Small hiatal hernia. Stable left adrenal adenoma. <Electronically signed by Breezy Espinal > 08/09/20 [id number]
== END ==
LOC: M RAD 13:24
PROVIDERS: ATTEND Family Medicine
DX: E27.8 Other specified disorders of adrenal gland (principal)

== ENCOUNTER → 2020-11-06 | Outpatient (REF) | payer MEDICARE ==
[~2020-11-06] MED LIST changes: -ISOVUE-370 76% 100ML VIAL As Ordered ONE; +OMEP40CA4 PO; -OMEP40CA97 PO
[2020-11-06 13:52] LABS: APPEARANCE, URINE HAZY (CLEAR); BACTERIA, URINE AUTO 1+ (NEGATIVE); BILIRUBIN, URINE AUTO NEGATIVE (NEGATIVE); BLOOD, URINE BLOOD NEGATIVE (NEGATIVE); COLOR, URINE YELLOW (YELLOW); GLUCOSE, URINE (UA) AUTO 1+ mg/dL (NEGATIVE); KETONE, URINE AUTO TRACE mg/dL (NEGATIVE); LEUKOCYTE ESTERASE, URINE AUTO 3+ (NEGATIVE); NITRITE, URINE AUTO NEGATIVE (NEGATIVE); PROTEIN, URINE AUTO NEGATIVE (NEGATIVE); RBC, URINE AUTO 4 /HPF (0-3); SPECIFIC GRAVITY URINE AUTO 1.018 (1.002-1.035); SQUAMOUS EPITHELIAL CELL UR AU 4 /HPF (0-6); UROBILINOGEN, URINE AUTO 0.2 mg/dL (0.0-2.0); WBC, URINE AUTO 9 /HPF (0-3)
== END ==
LOC: M SFHCPLAZ 13:07
PROVIDERS: ATTEND Physician Assistant
DX: R35.0 Frequency of micturition (principal)

== ENCOUNTER → 2020-11-20 | Outpatient (CLI) | payer MEDICARE ==
[2020-11-20 17:25] LABS: HEMATOCRIT 38.9 % (36.0-47.0); HEMOGLOBIN 12.9 g/dl (12.0-15.5); MEAN CORPUSCULAR HEMOGLOBIN 33.9 pg (27.0-33.0); MEAN CORPUSCULAR HGB CONC 33.2 g/dl (32.0-36.5); MEAN CORPUSCULAR VOLUME 102.4 fl (80.0-96.0); PLATELET COUNT, AUTOMATED 263 10^3/uL (150-450); WHITE BLOOD COUNT 8.9 10^3/uL (4.0-10.0)
[2020-11-20 18:17] LABS: ALBUMIN 4.2 GM/DL (3.2-5.2); BILIRUBIN,TOTAL 0.7 MG/DL (0.2-1.0); CALCIUM LEVEL 9.7 MG/DL (8.8-10.2); CREATININE FOR GFR 1.33 MG/DL (0.55-1.30); FREE T4 0.95 NG/DL (0.76-1.46); GLOMERULAR FILTRATION RATE 41.1 (>39); POTASSIUM SERUM 4.9 MEQ/L (3.5-5.1); THYROID STIMULATING HORMONE 0.188 uIU/ML (0.358-3.740); TOTAL PROTEIN 7.2 GM/DL (6.4-8.2)
[2020-11-20 18:42] LABS: HEMOGLOBIN A1c 5.8 %
== END ==
LOC: M PLALAB 14:07
PROVIDERS: ATTEND Family Medicine
DX: Z01.818 Encounter for other preprocedural examination (principal); E11.22 Type 2 diabetes mellitus with diabetic chronic kidney disease; E05.90 Thyrotoxicosis, unspecified without thyrotoxic crisis or storm

== ENCOUNTER → 2021-02-21 | Outpatient (REF) | payer MEDICARE | LOC: M LAB REF 12:48 | PROVIDERS: ATTEND Internal Medicine Nephrology | DX: E83.42 Hypomagnesemia (principal) ==

== ENCOUNTER 2021-09-04 06:51 | Outpatient (CLI) | payer MEDICARE ==
[2021-09-04] VITALS (8 sets, daily range): BP systolic 148–197; BP diastolic 62–91
[~2021-09-04] VITALS: Ht 174 cm; Wt 88.6 kg
[2021-09-04] MEDS ORDERED: diphenhydrAMINE 25MG CAP PO SCH (07:00)
[2021-09-04] MEDS ORDERED: ACETAMINOPHEN TAB 650MG DOSE (2X325MG) PO SCH (07:01)
== END 2021-09-04 12:15 | disposition home or self-care (01) ==
LOC: M INFU 06:51
PROVIDERS: ATTEND Internal Medicine Nephrology
DX: D64.9 Anemia, unspecified (principal); Z88.0 Allergy status to penicillin
CPT/HCPCS: 36415; 36430; 86850; 86900; 86901; 86920; P9016

== ENCOUNTER → 2022-02-25 | Outpatient (CLI) | payer MEDICARE ==
[~2022-02-25] MED LIST changes: +E-Z-GAS II EFFERVESCENT PACKET (SODIUM BICARB./CITRIC ACID/SIMETHICONE) As Ordered ONE; +E-Z-HD 98% w/w 340GM SUSP BTL As Ordered ONE; +E-Z-PAQUE 96% w/w SUSP 176GM BTL As Ordered ONE; +FISH10005 PO; -FISH7.5C PO
== END ==
LOC: M RAD 08:43
PROVIDERS: ATTEND Internal Medicine Gastroenterology
DX: D50.9 Iron deficiency anemia, unspecified (principal); R19.5 Other fecal abnormalities; K57.11 Diverticulosis of small intestine without perforation or abscess with bleeding

== ENCOUNTER → 2023-01-26 | Outpatient (REF) | payer MEDICARE ==
[~2023-01-26] MED LIST changes: -E-Z-GAS II EFFERVESCENT PACKET (SODIUM BICARB./CITRIC ACID/SIMETHICONE) As Ordered ONE; -E-Z-HD 98% w/w 340GM SUSP BTL As Ordered ONE; -E-Z-PAQUE 96% w/w SUSP 176GM BTL As Ordered ONE
== END ==
LOC: M SFHCWAGY 12:53
PROVIDERS: ATTEND Nurse Practitioner Family
DX: N73.9 Female pelvic inflammatory disease, unspecified (principal)

== ENCOUNTER 2023-02-01 07:32 | Day surgery (SDC) | payer MEDICARE ==
[~2023-02-01] VITALS: Ht 172.7 cm; Wt 83.6 kg
[~2023-02-01 07:32] MED LIST changes: +AREDS PO; +CYCLOPENTOLATE 1% OPHTH SOLN 2ML BTL OS SCH; +FLURBIPROFEN 0.03% OPHTH SOLN 2.5 ML OS SCH; +LIDOCAINE 1% SDV 5ML VIAL As Ordered ONE; +LR 1,000 ML IV SCH; +MIDAZOLAM INJ 2MG/2ML VIAL As Ordered ONE; +PHENYLEPHRINE 2.5% OPHTH SOL 2ML OS SCH; +TETRACAINE 0.5% OPHTH SOLN 4ML OS SCH; +VITAMIN B12 PO; +fentaNYL 100 MCG/2 ML INJECTION As Ordered ONE
[2023-02-01] MEDS ORDERED: hydrALAZINE 20MG/ML 1ML VIAL As Ordered ONE (10:29)
[2023-02-01 10:43] VITALS: BP 189/79; TEMP 97.1; O2SAT 98
== END 2023-02-01 11:05 | disposition home or self-care (01) ==
LOC: M SDC 07:32
PROVIDERS: ATTEND Ophthalmology
DX: H25.12 Age-related nuclear cataract, left eye (principal); E11.9 Type 2 diabetes mellitus without complications; I10 Essential (primary) hypertension; Z95.5 Presence of coronary angioplasty implant and graft; Z95.0 Presence of cardiac pacemaker; R00.1 Bradycardia, unspecified; E03.9 Hypothyroidism, unspecified; Z88.0 Allergy status to penicillin; Z88.8 Allergy status to other drugs, medicaments and biological substances; Z79.899 Other long term (current) drug therapy
CPT/HCPCS: 66984; J0360; J2250; J3010; V2632

== ENCOUNTER 2023-03-01 09:24 | Day surgery (SDC) | payer MEDICARE ==
[~2023-03-01] VITALS: Ht 172.7 cm; Wt 83.2 kg
[~2023-03-01 09:24] MED LIST changes: +CEFUROXIME 1MG/0.1ML INTRACAMERAL INJ As Ordered ONE; -CYCLOPENTOLATE 1% OPHTH SOLN 2ML BTL OS SCH; -FLURBIPROFEN 0.03% OPHTH SOLN 2.5 ML OS SCH; -MIDAZOLAM INJ 2MG/2ML VIAL As Ordered ONE; -PHENYLEPHRINE 2.5% OPHTH SOL 2ML OS SCH; +QC F0.52 PO; -TETRACAINE 0.5% OPHTH SOLN 4ML OS SCH; -fentaNYL 100 MCG/2 ML INJECTION As Ordered ONE
[2023-03-01] MEDS: CYCLOPENTOLATE 1% OPHTH SOLN 2ML BTL OD SCH ×2 (10:06→10:15)
[2023-03-01] MEDS: FLURBIPROFEN 0.03% OPHTH SOLN 2.5 ML OD SCH ×2 (10:07→10:15)
[2023-03-01] MEDS: PHENYLEPHRINE 2.5% OPHTH SOL 2ML OD SCH ×2 (10:07→10:15)
[2023-03-01] MEDS: TETRACAINE 0.5% OPHTH SOLN 4ML OD SCH ×2 (10:07→10:15)
[2023-03-01] MEDS ORDERED: MIDAZOLAM INJ 2MG/2ML VIAL As Ordered ONE (11:57)
[2023-03-01] MEDS ORDERED: LABETALOL 100MG/20ML VIAL As Ordered ONE (11:58)
[2023-03-01 12:20] VITALS: BP 188/77; TEMP 97.6; O2SAT 97
== END 2023-03-01 12:35 | disposition home or self-care (01) ==
LOC: M SDC 09:24
PROVIDERS: ATTEND Ophthalmology
DX: H25.11 Age-related nuclear cataract, right eye (principal); I10 Essential (primary) hypertension; E78.00 Pure hypercholesterolemia, unspecified; E03.9 Hypothyroidism, unspecified; M10.9 Gout, unspecified; Z95.0 Presence of cardiac pacemaker; I12.9 Hypertensive chronic kidney disease with stage 1 through stage 4 chronic kidney disease, or unspecified chronic kidney disease; N18.4 Chronic kidney disease, stage 4 (severe); Z79.899 Other long term (current) drug therapy; Z79.82 Long term (current) use of aspirin; Z98.42 Cataract extraction status, left eye; Z90.710 Acquired absence of both cervix and uterus
CPT/HCPCS: 66984; J0697; J1920; J2250; V2632

== ENCOUNTER 2023-08-10 07:20 | Day surgery (SDC) | payer MEDICARE ==
[~2023-08-10] VITALS: Ht 172.7 cm; Wt 84.4 kg
[~2023-08-10 07:20] MED LIST changes: -CEFUROXIME 1MG/0.1ML INTRACAMERAL INJ As Ordered ONE; +CYAN500T14 PO; -HYDR-3911 PO; +HYDR50TA46 PO; +IRBE300T25 PO; -IRBE300T7 PO; -LIDOCAINE 1% SDV 5ML VIAL As Ordered ONE; -LR 1,000 ML IV SCH; +PRES10CA2 PO; +PROBCAP14 PO; +VITA-243 PO
[2023-08-10] MEDS: NS 1,000 ML IV ONE (07:44)
[2023-08-10] MEDS ORDERED: LIDOCAINE 2% 100MG/5ML SDV (FOR ANES.) As Ordered ONE (08:37)
[2023-08-10] MEDS ORDERED: propofoL 200 MG/20 ML VIAL As Ordered ONE (08:37)
[2023-08-10 09:46] VITALS: BP 163/74; TEMP 97; O2SAT 98
== END 2023-08-10 09:58 | disposition home or self-care (01) ==
LOC: M OPP 07:20
PROVIDERS: ATTEND Internal Medicine Gastroenterology
DX: D62 Acute posthemorrhagic anemia (principal); K64.8 Other hemorrhoids; K57.30 Diverticulosis of large intestine without perforation or abscess without bleeding; K64.4 Residual hemorrhoidal skin tags; K44.9 Diaphragmatic hernia without obstruction or gangrene; K63.5 Polyp of colon; K29.70 Gastritis, unspecified, without bleeding; I12.9 Hypertensive chronic kidney disease with stage 1 through stage 4 chronic kidney disease, or unspecified chronic kidney disease; N18.4 Chronic kidney disease, stage 4 (severe); E78.00 Pure hypercholesterolemia, unspecified; I73.9 Peripheral vascular disease, unspecified; Z79.899 Other long term (current) drug therapy; Z79.82 Long term (current) use of aspirin; Z95.0 Presence of cardiac pacemaker; Z88.0 Allergy status to penicillin; Z88.8 Allergy status to other drugs, medicaments and biological substances

== ENCOUNTER → 2023-11-25 | Outpatient (REF) | payer MEDICARE | LOC: M PLALAB 15:04 | PROVIDERS: ATTEND Nurse Practitioner Family | DX: N95.2 Postmenopausal atrophic vaginitis (principal); R35.0 Frequency of micturition ==